=== PATIENT | male | born 1965 | race American Indian/Alaskan Native ===

== ENCOUNTER 2021-10-18 17:25 | Inpatient (IN) | payer OTHER ==
[2021-10-18] MEDS ORDERED: SODIUM CHLORIDE 0.9% 1000 ML IV SOLN IV ONE (18:38)
[2021-10-18] MEDS ORDERED: cefTRIAXone/NS 1 GM/50 ML 1 GM/50 ML BAG IV ONE (18:40)
--- NOTE | 2021-10-18 18:42 | Emergency Department Report ---
ED Altered Mental Status HPI - General Chief Complaint: Weakness Stated Complaint: FEVER/AMS PUI?: No Time Seen by Provider: 10/18/21 18:25 Source: patient Mode of arrival: Ambulatory Limitations: No Limitations - History of Present Illness Initial Comments: Patient is a 55-year-old male who presents emergency room for altered mental status and fever. Patient states that he feels cold. Patient is confused. Patient is alert and oriented x2. Patient not sure why he is here except that he is cold. Patient states his brother brought him here. MD Complaint: altered mental status -: Sudden Severity: severe Consistency of Symptoms: constant Associated Symptoms: cough, fever/chills - Related Data Previous Rx's Medication Instructions Recorded Last Taken Type predniSONE [Deltasone] 20 mg PO QDAY #4 tab 01/03/20 Unknown Rx Allergies Allergy/AdvReac Type Severity Reaction Status Date / Time No Known Allergies Allergy Verified 03/17/15 19:11 ED Review of Systems ROS: Stated complaint: FEVER/AMS Other details as noted in HPI Comment: Unobtainable due to pts medical conditions ED Past Medical Hx - Past Medical History Hx Hypertension: Yes Hx Congestive Heart Failure: No Hx Diabetes: No Hx Asthma: No Hx COPD: No Hx HIV: No - Social History Smoking Status: Never Smoker - Medications Home Medications: Home Medications Medication Instructions Recorded Confirmed Last Taken Type predniSONE [Deltasone] 20 mg PO QDAY #4 tab 01/03/20 Unknown Rx ED Physical Exam - General Limitations: No Limitations General appearance: alert, in no apparent distress - Head Head exam: Present: atraumatic, normocephalic - Eye Eye exam: Present: normal appearance - ENT ENT exam: Present: mucous membranes moist - Neck Neck exam: Present: normal inspection - Respiratory Respiratory exam: Present: normal lung sounds bilaterally. Absent: respiratory distress - Cardiovascular Cardiovascular Exam: Present: regular rate, normal rhythm. Absent: systolic murmur, diastolic murmur, rubs, gallop - GI/Abdominal GI/Abdominal exam: Present: soft, tenderness, normal bowel sounds - Rectal Rectal exam: Present: deferred - Extremities Exam Extremities exam: Present: normal inspection - Back Exam Back exam: Present: normal inspection - Neurological Exam Neurological exam: Present: alert, oriented X3 - Psychiatric Psychiatric exam: Present: normal affect, normal mood - Skin Skin exam: Present: warm, dry, intact, normal color. Absent: rash - Assessment Assessment Interval: Baseline - Level of Consciousness 1a. Level of Consciousness: alert/keenly responsive - LOC Questions 1b. LOC Questions: answers 1 question correctly - LOC Command 1c. LOC Commands: performs tasks correctly - Best Gaze 2. Best Gaze: normal - Visual 3. Visual: no visual loss - Facial Palsy 4. Facial Palsy: normal symmetrical movement - Motor Arm 5a. Motor Arm Left: no drift 5b. Motor Arm Right: no drift - Motor Leg 6a. Motor Leg Left: no drift 6b. Motor Leg Right: no drift - Limb Ataxia 7. Limb Ataxia: absent - Sensory 8. Sensory: normal - Best Language 9. Best Language: no aphasia - Dysarthria 10. Dysarthria: normal - Extinction and Inattention 11. Extinction/Inattention: no abnormality - Scoring Total Score: 1 Stroke Severity: Minor Stroke ED Course Vital Signs 10/18/21 10/18/21 10/18/21 17:35 19:05 19:52 Temperature 98.7 F 99.3 F Pulse Rate 101 H 96 H 94 H Respiratory 16 29 H 18 Rate Blood Pressure 144/112 148/105 158/109 [Left] O2 Sat by Pulse 94 96 96 Oximetry - Reevaluation(s) Reevaluation #1: Code sepsis initiated. Patient will be given fluids and early antibiotics. Patient also found to be hypoxic during initial evaluation. Patient placed on supplemental oxygen. 10/18/21 18:30 Reevaluation #2: Patient on oxygen. Patient ox saturation better with oxygen supplementation. Patient heart rate improved with fluids. 10/18/21 18:59 Reevaluation #3: Patient being monitored. Patient still confused. 10/18/21 19:59 Reevaluation #4: Patient's brother at bedside. Patient brother states he has been complaining of abdominal pain, diarrhea, nausea and vomiting for the past 3 days. Patient's brother states he then became confused and he brought him to the hospital today. 10/18/21 22:59 - Consultations Consultation #1: Hospitalist consulted for admission. Hospitalist to admit patient. 10/18/21 23:37 - Lab Data Result diagrams: 10/18/21 18:23 10/18/21 18:23 Lab Results 10/18/21 10/18/21 10/18/21 Range/Units 18:23 18:23 19:09 WBC 4.1 L (4.5-11.0) K/mm3 RBC 4.80 (3.65-5.03) M/mm3 Hgb 14.5 (11.8-15.2) gm/dl Hct 43.3 (35.5-45.6) % MCV 90 (84-94) fl MCH 30 (28-32) pg MCHC 33 (32-34) % RDW 16.6 H (13.2-15.2) % Plt Count 213 (140-440) K/mm3 Lymph % (Auto) 25.8 (13.4-35.0) % [place] % (Auto) 9.6 H (0.0-7.3) % Eos % (Auto) 0.6 (0.0-4.3) % Baso % (Auto) 0.2 (0.0-1.8) % Lymph # (Auto) 1.1 L (1.2-5.4) K/mm3 [place] # (Auto) 0.4 (0.0-0.8) K/mm3 Eos # (Auto) 0.0 (0.0-0.4) K/mm3 Baso # (Auto) 0.0 (0.0-0.1) K/mm3 Seg Neutrophils % 63.8 (40.0-70.0) % Seg Neutrophils # 2.6 (1.8-7.7) K/mm3 Sodium 138 (137-145) mmol/L Potassium 3.7 (3.6-5.0) mmol/L Chloride 102.5 (98-107) mmol/L Carbon Dioxide 24 (22-30) mmol/L Anion Gap 15 mmol/L BUN 11 (9-20) mg/dL Creatinine 1.0 (0.8-1.3) mg/dL Estimated GFR > 60 ml/min BUN/Creatinine Ratio 11 % Glucose 208 H (75-100) mg/dL Lactic Acid 1.20 (0.7-2.0) mmol/L Calcium 9.0 (8.4-10.2) mg/dL Total Bilirubin (0.1-1.2) mg/dL Direct Bilirubin (0-0.2) mg/dL Indirect Bilirubin mg/dL AST (5-40) units/L ALT (7-56) units/L Alkaline Phosphatase (35-129) units/L Ammonia (25-60) umol/L Total Creatine Kinase (55-170) units/L Troponin T (0.00-0.029) ng/mL Total Protein (6.3-8.2) g/dL Albumin (3.9-5) g/dL Albumin/Globulin Ratio % Urine Color (Yellow) Urine Turbidity (Clear) Urine pH (5.0-7.0) Ur Specific Winner (1.003-1.030) Urine Protein (Negative) mg/dL Urine Glucose (UA) (Negative) mg/dL Urine Ketones (Negative) mg/dL Urine Blood (Negative) Urine Nitrite (Negative) Urine Bilirubin (Negative) Urine Urobilinogen (<2.0) mg/dL Ur Leukocyte Esterase (Negative) Urine WBC (Auto) (0.0-6.0) /HPF Urine RBC (Auto) (0.0-6.0) /HPF U Epithel Cells (Auto) (0-13.0) /HPF Urine Mucus /HPF Plasma/Serum Alcohol (0-0.07) % 10/18/21 10/18/21 10/18/21 Range/Units 19:09 19:09 19:09 WBC (4.5-11.0) K/mm3 RBC (3.65-5.03) M/mm3 Hgb (11.8-15.2) gm/dl Hct (35.5-45.6) % MCV (84-94) fl MCH (28-32) pg MCHC (32-34) % RDW (13.2-15.2) % Plt Count (140-440) K/mm3 Lymph % (Auto) (13.4-35.0) % Sew[place] % (Auto) (0.0-7.3) % Eos % (Auto) (0.0-4.3) % Baso % (Auto) (0.0-1.8) % Lymph # (Auto) (1.2-5.4) K/mm3 [place] # (Auto) (0.0-0.8) K/mm3 Eos # (Auto) (0.0-0.4) K/mm3 Baso # (Auto) (0.0-0.1) K/mm3 Seg Neutrophils % (40.0-70.0) % Seg Neutrophils # (1.8-7.7) K/mm3 Sodium (137-145) mmol/L Potassium (3.6-5.0) mmol/L Chloride (98-107) mmol/L Carbon Dioxide (22-30) mmol/L Anion Gap mmol/L BUN (9-20) mg/dL Creatinine (0.8-1.3) mg/dL Estimated GFR ml/min BUN/Creatinine Ratio % Glucose (75-100) mg/dL Lactic Acid (0.7-2.0) mmol/L Calcium (8.4-10.2) mg/dL Total Bilirubin 0.70 (0.1-1.2) mg/dL Direct Bilirubin 0.3 H (0-0.2) mg/dL Indirect Bilirubin 0.4 mg/dL AST 134 H (5-40) units/L ALT 94 H (7-56) units/L Alkaline Phosphatase 57 (35-129) units/L Ammonia 25.0 (25-60) umol/L Total Creatine Kinase (55-170) units/L Troponin T < 0.010 (0.00-0.029) ng/mL Total Protein 8.2 (6.3-8.2) g/dL Albumin 4.0 (3.9-5) g/dL Albumin/Globulin Ratio 1.0 % Urine Color (Yellow) Urine Turbidity (Clear) Urine pH (5.0-7.0) Ur Specific Winner (1.003-1.030) Urine Protein (Negative) mg/dL Urine Glucose (UA) (Negative) mg/dL Urine Ketones (Negative) mg/dL Urine Blood (Negative) Urine Nitrite (Negative) Urine Bilirubin (Negative) Urine Urobilinogen (<2.0) mg/dL Ur Leukocyte Esterase (Negative) Urine WBC (Auto) (0.0-6.0) /HPF Urine RBC (Auto) (0.0-6.0) /HPF U Epithel Cells (Auto) (0-13.0) /HPF Urine Mucus /HPF Plasma/Serum Alcohol (0-0.07) % 10/18/21 10/18/21 10/18/21 Range/Units 19:09 19:09 20:16 WBC (4.5-11.0) K/mm3 RBC (3.65-5.03) M/mm3 Hgb (11.8-15.2) gm/dl Hct (35.5-45.6) % MCV (84-94) fl MCH (28-32) pg MCHC (32-34) % RDW (13.2-15.2) % Plt Count (140-440) K/mm3 Lymph % (Auto) (13.4-35.0) % [place] % (Auto) (0.0-7.3) % Eos % (Auto) (0.0-4.3) % Baso % (Auto) (0.0-1.8) % Lymph # (Auto) (1.2-5.4) K/mm3 [place] # (Auto) (0.0-0.8) K/mm3 Eos # (Auto) (0.0-0.4) K/mm3 Baso # (Auto) (0.0-0.1) K/mm3 Seg Neutrophils % (40.0-70.0) % Seg Neutrophils # (1.8-7.7) K/mm3 Sodium (137-145) mmol/L Potassium (3.6-5.0) mmol/L Chloride (98-107) mmol/L Carbon Dioxide (22-30) mmol/L Anion Gap mmol/L BUN (9-20) mg/dL Creatinine (0.8-1.3) mg/dL Estimated GFR ml/min BUN/Creatinine Ratio % Glucose (75-100) mg/dL Lactic Acid 1.50 (0.7-2.0) mmol/L Calcium (8.4-10.2) mg/dL Total Bilirubin (0.1-1.2) mg/dL Direct Bilirubin (0-0.2) mg/dL Indirect Bilirubin mg/dL AST (5-40) units/L ALT (7-56) units/L Alkaline Phosphatase (35-129) units/L Ammonia (25-60) umol/L Total Creatine Kinase 371 H (55-170) units/L Troponin T (0.00-0.029) ng/mL Total Protein (6.3-8.2) g/dL Albumin (3.9-5) g/dL Albumin/Globulin Ratio % Urine Color (Yellow) Urine Turbidity (Clear) Urine pH (5.0-7.0) Ur Specific Winner (1.003-1.030) Urine Protein (Negative) mg/dL Urine Glucose (UA) (Negative) mg/dL Urine Ketones (Negative) mg/dL Urine Blood (Negative) Urine Nitrite (Negative) Urine Bilirubin (Negative) Urine Urobilinogen (<2.0) mg/dL Ur Leukocyte Esterase (Negative) Urine WBC (Auto) (0.0-6.0) /HPF Urine RBC (Auto) (0.0-6.0) /HPF U Epithel Cells (Auto) (0-13.0) /HPF Urine Mucus /HPF Plasma/Serum Alcohol < 0.01 (0-0.07) % 10/18/21 Range/Units 22:08 WBC (4.5-11.0) K/mm3 RBC (3.65-5.03) M/mm3 Hgb (11.8-15.2) gm/dl Hct (35.5-45.6) % MCV (84-94) fl MCH (28-32) pg MCHC (32-34) % RDW (13.2-15.2) % Plt Count (140-440) K/mm3 Lymph % (Auto) (13.4-35.0) % [place] % (Auto) (0.0-7.3) % Eos % (Auto) (0.0-4.3) % Baso % (Auto) (0.0-1.8) % Lymph # (Auto) (1.2-5.4) K/mm3 [place] # (Auto) (0.0-0.8) K/mm3 Eos # (Auto) (0.0-0.4) K/mm3 Baso # (Auto) (0.0-0.1) K/mm3 Seg Neutrophils % (40.0-70.0) % Seg Neutrophils # (1.8-7.7) K/mm3 Sodium (137-145) mmol/L Potassium (3.6-5.0) mmol/L Chloride (98-107) mmol/L Carbon Dioxide (22-30) mmol/L Anion Gap mmol/L BUN (9-20) mg/dL Creatinine (0.8-1.3) mg/dL Estimated GFR ml/min BUN/Creatinine Ratio % Glucose (75-100) mg/dL Lactic Acid (0.7-2.0) mmol/L Calcium (8.4-10.2) mg/dL Total Bilirubin (0.1-1.2) mg/dL Direct Bilirubin (0-0.2) mg/dL Indirect Bilirubin mg/dL AST (5-40) units/L ALT (7-56) units/L Alkaline Phosphatase (35-129) units/L Ammonia (25-60) umol/L Total Creatine Kinase (55-170) units/L Troponin T (0.00-0.029) ng/mL Total Protein (6.3-8.2) g/dL Albumin (3.9-5) g/dL Albumin/Globulin Ratio % Urine Color Yellow (Yellow) Urine Turbidity Clear (Clear) Urine pH 6.0 (5.0-7.0) Ur Specific Winner 1.019 (1.003-1.030) Urine Protein <15 mg/dl (Negative) mg/dL Urine Glucose (UA) 150 (Negative) mg/dL Urine Ketones Neg (Negative) mg/dL Urine Blood Neg (Negative) Urine Nitrite Neg (Negative) Urine Bilirubin Neg (Negative) Urine Urobilinogen 4.0 (<2.0) mg/dL Ur Leukocyte Esterase Neg (Negative) Urine WBC (Auto) 2.0 (0.0-6.0) /HPF Urine RBC (Auto) 1.0 (0.0-6.0) /HPF U Epithel Cells (Auto) < 1.0 (0-13.0) /HPF Urine Mucus Few /HPF Plasma/Serum Alcohol (0-0.07) % - EKG Data -: EKG Interpreted by Vt EKG shows normal: sinus rhythm, axis, intervals, QRS complexes, ST-T waves Rate: tachycardia - Radiology Data Radiology results: report reviewed, image reviewed CHEST 1 VIEW INDICATION / CLINICAL INFORMATION: fever. FINDINGS: SUPPORT DEVICES: None. HEART / MEDIASTINUM: No significant abnormality. LUNGS / PLEURA: No significant pulmonary or pleural abnormality. No pneumothorax. ADDITIONAL FINDINGS: No significant additional findings. IMPRESSION: 1. No acute findings. NONENHANCED CT SCAN OF THE HEAD: INDICATION / CLINICAL INFORMATION: 55 years Male; Altered Mental Status. TECHNIQUE: Routine CT head without contrast. All CT scans at this location are performed using CT dose reduction for ALARA by means of automated exposure control. COMPARISON: CT scan of the head from 12/25/2019 FINDINGS: BRAIN / INTRACRANIAL CONTENTS: No acute hemorrhage, mass effect, midline shift, hydrocephalus, or acute, large territorial infarct. No chronic infarct or focal atrophy. Normal brain volume and ventricular/sulcal size for age. No significant white matter abnormality. CRANIOCERVICAL JUNCTION: No significant abnormality. ORBITS: No significant abnormality of visualized orbits. SINUSES / MASTOIDS: Retention cyst in the left sphenoid sinus and right ma xillary sinus ADDITIONAL FINDINGS: None. IMPRESSION: No acute focal parenchymal lesion CTA CHEST WITH CONTRAST INDICATION / CLINICAL INFORMATION: fever. ams. tachyacrdia, hypoxia. TECHNIQUE: Axial CT images were obtained through the chest after injection of 100 cc Omnipaque 350 IV contrast. 3 plane MIP and/or 3D reconstructions were produced. All CT scans at this location are performed using CT dose reduction for SymwaveRA by means of automated exposure control. COMPARISON: None available. FINDINGS: VASCULAR FINDINGS: PULMONARY ARTERY: Suboptimal opacification of segmental and subsegmental pulmonary artery branches. Additional motion artifact present. No obvious filling defects compatible with pulmonary artery embolus.. THORACIC AORTA: No significant abnormality. CORONARY ARTERY CALCIFICATION: Absent -- None. NONVASCULAR FINDINGS: LOWER NECK: Soft tissues and musculature of the lower neck demonstrate no significant abnormality. The thyroid demonstrates no significant abnormality. HEART: No significant abnormality. MEDIASTINUM / KIMBERLY: No significant abnormality. ESOPHAGUS: No significant abnormality. LYMPH NODES: No adenopathy within the axilla, mediastinum, or kimberly. LUNGS: Lungs are blurred by motion. No focal consolidation. No suspicious nodules. PLEURA: No pleural effusion. No pneumothorax. THORACIC SOFT TISSUES: No significant abnormality of the chest wall or upper thoracic musculature. BONES: No significant skeletal abnormalities. ADDITIONAL CHEST FINDINGS: None. UPPER ABDOMEN: Low-attenuation of the liver compatible with hepatic steatosis. IMPRESSION: 1. No CT evidence for pulmonary embolism. 2. No acute findings. CT ABDOMEN AND PELVIS WITH CONTRAST INDICATION / CLINICAL INFORMATION: fever. ams.abd pain. TECHNIQUE: Axial CT images were obtained through the abdomen and pelvis after unspecified IV contrast. All CT scans at this location are performed using CT dose reduction for ALARA by means of automated exposure control. COMPARISON: ; CTA chest same date. FINDINGS: LOWER CHEST: No acute findings within the lower chest. Please see comparison study for additional. LIVER: Diffuse low attenuation with rounded focus of enhancement in lateral segment left hepatic lobe, differential considerations to include class filled hemangioma, focal nodular hyperplasia, and focal sparing. Additional small foci adjacent gallbladder fossa. GALLBLADDER: No significant abnormality. BILE DUCTS: No significant abnormality. SPLEEN: No significant abnormality. PANCREAS: No significant abnormality. ADRENALS: No significant abnormality. KIDNEYS/URETERS: No stones or hydronephrosis. No solid renal lesion. STOMACH / DUODENUM / SMALL BOWEL: Circumferential wall thickening of the lower esophagus. The stomach, duodenum, small bowel, and mesentery otherwise demonstrate no significant abnormalities. COLON: No significant abnormality. APPENDIX: No significant abnormality. PERITONEUM: No free air or free fluid are present within the abdomen or pelvis. LYMPH NODES: No significant adenopathy. AORTA / ARTERIES: No significant abnormality. IVC / VEINS: No significant abnormality. URINARY BLADDER: No significant abnormality. REPRODUCTIVE ORGANS: No significant abnormality. ADDITIONAL ABDOMINAL/PELVIC FINDINGS: None. SKELETAL SYSTEM: No significant abnormality. IMPRESSION: 1. No acute findings within the abdomen or pelvis. 2. Rounded focus of enhancement left hepatic lobe with additional small foci a djacent to gallbladder fossa, differential considerations as detailed. - Medical Decision Making Patient is a 55-year-old male who presents emergency room with altered mental status and fever. Initial evaluation was done and patient able to give little insight to the history of presenting illness and other symptoms besides fever and being confused. Patient brother later in the ER course presented at bedside and reported that the patient had abdominal pain, diarrhea, nausea, vomiting for 1 week. The brother brought him to the ER because he was confused and febrile. Initial evaluation, patient found to be hypoxic and the patient was placed on supplemental oxygen. Patient remained on supplemental oxygen entire time in the ER. Patient given fluids and the patient's heart rate improved. Due to patient's altered mental status, a head CT was done. Patient's head CT was negative for acute findings. For the fever, the patient had a chest x-ray which was negative for acute findings. Patient had an abdominal CT for the abdominal pain. Patient done with C was negative for acute findings. Patient had a chest CT due to the tachycardia and hypoxia. Patient's chest CT was negat shay for acute findings. CTA showed no PE. Patient admitted to the hospital service for further evaluation treatment. Critical care time documented due to the multiple reassessments, prolonged time at the bedside, interpretation of diagnostics and labs. - Differential Diagnosis Abdominal pain, dehydration, AMS, hypoxia, nausea and vomiting Critical Care Time: Yes Critical care time in (mins) excluding proc time.: 35 Critical care attestation.: If time is entered above; I have spent that time in minutes in the direct care of this critically ill patient, excluding procedure time. Critical Care Time: 35 minutes ED Disposition Clinical Impression: Hypoxia, Nausea vomiting and diarrhea Altered mental status Qualifiers: Altered mental status type: unspecified Qualified Code(s): R41.82 - Altered mental status, unspecified Fever Qualifiers: Fever type: unspecified Qualified Code(s): R50.9 - Fever, unspecified Abdominal pain Qualifiers: Abdominal location: unspecified location Qualified Code(s): R10.9 - Unspecified abdominal pain Respiratory failure Qualifiers: Chronicity: acute Respiratory failure complication: hypoxia Qualified Code(s): J96.01 - Acute respiratory failure with hypoxia Disposition: 09 ADMITTED INPATIENT Is pt being admited?: Yes Does the pt Need Aspirin: No Condition: Critical Time of Disposition: 23:44
[2021-10-18 18:53] LABS: Basophils % (Auto) 0.2 % (0.0-1.8); Eosinophils % (Auto) 0.6 % (0.0-4.3); Hematocrit 43.3 % (35.5-45.6); Hemoglobin 14.5 gm/dl (11.8-15.2); Lymphocytes # (Auto) 1.1 K/mm3 (1.2-5.4); Lymphocytes % (Auto) 25.8 % (13.4-35.0); Mean Corpuscular HGB Conc 33 % (32-34); Mean Corpuscular Volume 90 fl (84-94); Monocytes # (Auto) 0.4 K/mm3 (0.0-0.8); Monocytes % (Auto) 9.6 % (0.0-7.3); Platelet Count 213 K/mm3 (140-440); Red Cell Distribution Width 16.6 % (13.2-15.2)
[2021-10-18 19:05] LABS: BUN/Creatinine Ratio 11; Blood Urea Nitrogen 11 mg/dL (9-20); Hemolysis Index 5
--- NOTE | 2021-10-18 19:24 | XRay Report ---
CHEST 1 VIEW INDICATION / CLINICAL INFORMATION: fever. FINDINGS: SUPPORT DEVICES: None. HEART / MEDIASTINUM: No significant abnormality. LUNGS / PLEURA: No significant pulmonary or pleural abnormality. No pneumothorax. ADDITIONAL FINDINGS: No significant additional findings. IMPRESSION: 1. No acute findings. Signer Name: Quique Lawler MD Signed: 10/18/2021 7:19 PM Workstation Name: [id number]
[2021-10-18 19:47] LABS: Bilirubin,Direct 0.3 mg/dL (0-0.2)
--- NOTE | 2021-10-18 20:15 | Cat Scan Report ---
NONENHANCED CT SCAN OF THE HEAD: INDICATION / CLINICAL INFORMATION: 55 years Male; Altered Mental Status. TECHNIQUE: Routine CT head without contrast. All CT scans at this location are performed using CT dos e reduction for ALARA by means of automated exposure control. COMPARISON: CT scan of the head from 12/25/2019 FINDINGS: BRAIN / INTRACRANIAL CONTENTS: No acute hemorrhage, mass effect, midline shift, hydrocephalus, or acu te, large territorial infarct. No chronic infarct or focal atrophy. Normal brain volume and ventricul ar/sulcal size for age. No significant white matter abnormality. CRANIOCERVICAL JUNCTION: No significant abnormality. ORBITS: No significant abnormality of visualized orbits. SINUSES / MASTOIDS: Retention cyst in the left sphenoid sinus and right maxillary sinus ADDITIONAL FINDINGS: None. IMPRESSION: No acute focal parenchymal lesion Signer Name: Katherine Mora MD Signed: 10/18/2021 8:11 PM Workstation Name: [id number]
--- NOTE | 2021-10-18 22:19 | History and Physical Report ---
History of Present Illness Date of examination: 10/18/21 Date of admission: 10/18/2021 Chief complaint: Altered mental status History of present illness: 55-year-old male presenting to the emergency room today complaining of Gardner mental status and fever. Patient was said to be brought to the emergency room by his brother. Patient unable to provide adequate history and most of the information was gotten from the ER staff. Patient however states he just feels cold. He denies any chest pain, no nausea vomiting and no abdominal pain. No hematuria or dysuria. Work-up in the emergency room today, chest x-ray shows no acute findings. CT of the head shows no acute findings. CT of the abdomen and pelvis shows no acute findings Patient being admitted for further evaluation of his mental status. Past History Past Medical History: hypertension Past Surgical History: No surgical history Social history: no significant social history Family history: no significant family history Medications and Allergies Allergies Allergy/AdvReac Type Severity Reaction Status Date / Time No Known Allergies Allergy Verified 03/17/15 19:11 Home Medications Medication Instructions Recorded Confirmed Last Taken Type predniSONE [Deltasone] 20 mg PO QDAY #4 tab 01/03/20 10/19/21 Unknown Rx Review of Systems ROS unobtainable: due to mental status Exam - Constitutional Vitals: Temp Pulse Resp BP Pulse Ox 99.3 F 94 H 18 158/109 96 10/18/21 19:05 10/18/21 19:52 10/18/21 19:52 10/18/21 19:52 10/18/21 19:52 General appearance: Present: no acute distress, well-nourished - EENT Eyes: Present: PERRL, EOM intact. Absent: scleral icterus ENT: hearing intact, clear oral mucosa, dentition normal - Neck Neck: Present: supple, normal ROM - Respiratory Respiratory effort: normal Respiratory: bilateral: CTA - Cardiovascular Rhythm: regular Heart Sounds: Present: S1 & S2. Absent: gallop, systolic murmur, diastolic murmur, rub, click - Extremities Extremities: no ischemia, pulses intact, pulses symmetrical, No edema, normal temperature, normal color, Full ROM Peripheral Pulses: within normal limits - Abdominal General gastrointestinal: Present: soft, non-tender, non-distended, normal bowel sounds. Absent: mass - Integumentary Integumentary: Present: clear, warm, dry, normal turgor. Absent: rash - Musculoskeletal Musculoskeletal: strength equal bilaterally - Psychiatric Psychiatric: agitated - Neurologic Neurologic: CNII-XII intact, no focal deficits, moves all extremities HEART Score - HEART Score Troponin: Troponin T < 0.010 ng/mL (0.00-0.029) 10/18/21 19:09 Results - Labs CBC & Chem 7: 10/19/21 04:36 10/19/21 04:36 Labs: Abnormal lab results 10/18/21 10/18/21 10/18/21 Range/Units 18:23 18:23 19:09 WBC 4.1 L (4.5-11.0) K/mm3 RDW 16.6 H (13.2-15.2) % [place] % (Auto) 9.6 H (0.0-7.3) % Lymph # (Auto) 1.1 L (1.2-5.4) K/mm3 Glucose 208 H (75-100) mg/dL Direct Bilirubin 0.3 H (0-0.2) mg/dL AST 134 H (5-40) units/L ALT 94 H (7-56) units/L Total Creatine Kinase (55-170) units/L 10/18/21 Range/Units 19:09 WBC (4.5-11.0) K/mm3 RDW (13.2-15.2) % [place] % (Auto) (0.0-7.3) % Lymph # (Auto) (1.2-5.4) K/mm3 Glucose (75-100) mg/dL Direct Bilirubin (0-0.2) mg/dL AST (5-40) units/L ALT (7-56) units/L Total Creatine Kinase 371 H (55-170) units/L Assessment and Plan - Patient Problems (1) Altered mental status Current Visit: Yes Status: Acute Qualifiers: Altered mental status type: unspecified Qualified Code(s): R41.82 - Altered mental status, unspecified Plan to address problem: Etiology is unclear. Work-up so far has been negative. (2) Fever Current Visit: Yes Status: Acute Qualifiers: Fever type: unspecified Qualified Code(s): R50.9 - Fever, unspecified Plan to address problem: Will await culture results. (3) Hypoxia Current Visit: Yes Status: Acute Plan to address problem: We will keep O2 saturation greater equal to 92%. (4) HTN (hypertension) Current Visit: No Status: Acute Plan to address problem: Will resume routine home medication and monitor vital signs closely. (5) Elevated liver enzymes Current Visit: Yes Status: Acute Plan to address problem: Etiology is unclear Will check hepatitis profile. (6) DVT prophylaxis Current Visit: No Status: Acute Plan to address problem: Patient placed on subcutaneous heparin. (7) Full code status Current Visit: No Status: Acute Plan to address problem: Patient is full code.
[2021-10-18 22:42] LABS: Bilirubin,Urine NEG (Negative); Blood,Urine NEG (Negative); Color,Urine Yellow (Yellow); Mucus,Urine FEW /HPF; Protein,Urine <15 mg/dL mg/dL (Negative)
--- NOTE | 2021-10-18 23:29 | Cat Scan Report ---
CTA CHEST WITH CONTRAST INDICATION / CLINICAL INFORMATION: fever. ams. tachyacrdia, hypoxia. TECHNIQUE: Axial CT images were obtained through the chest after injection of 100 cc Omnipaque 350 IV contrast. 3 plane MIP and/or 3D reconstructions were produced. All CT scans at this location are per formed using CT dose reduction for ALARA by means of automated exposure control. COMPARISON: None available. FINDINGS: VASCULAR FINDINGS: PULMONARY ARTERY: Suboptimal opacification of segmental and subsegmental pulmonary artery branches. A dditional motion artifact present. No obvious filling defects compatible with pulmonary artery embolu s.. THORACIC AORTA: No significant abnormality. CORONARY ARTERY CALCIFICATION: Absent -- None. NONVASCULAR FINDINGS: LOWER NECK: Soft tissues and musculature of the lower neck demonstrate no significant abnormality. Th e thyroid demonstrates no significant abnormality. HEART: No significant abnormality. MEDIASTINUM / KIMBERLY: No significant abnormality. ESOPHAGUS: No significant abnormality. LYMPH NODES: No adenopathy within the axilla, mediastinum, or kimberly. LUNGS: Lungs are blurred by motion. No focal consolidation. No suspicious nodules. PLEURA: No pleural effusion. No pneumothorax. THORACIC SOFT TISSUES: No significant abnormality of the chest wall or upper thoracic musculature. BONES: No significant skeletal abnormalities. ADDITIONAL CHEST FINDINGS: None. UPPER ABDOMEN: Low-attenuation of the liver compatible with hepatic steatosis. IMPRESSION: 1. No CT evidence for pulmonary embolism. 2. No acute findings. Signer Name: Yair Bartlett II, MD Signed: 10/18/2021 11:25 PM Workstation Name: [id number]
--- NOTE | 2021-10-18 23:36 | Cat Scan Report ---
CT ABDOMEN AND PELVIS WITH CONTRAST INDICATION / CLINICAL INFORMATION: fever. ams.abd pain. TECHNIQUE: Axial CT images were obtained through the abdomen and pelvis after unspecified IV contrast . All CT scans at this location are performed using CT dose reduction for ALARA by means of automate d exposure control. COMPARISON: ; CTA chest same date. FINDINGS: LOWER CHEST: No acute findings within the lower chest. Please see comparison study for additional. LIVER: Diffuse low attenuation with rounded focus of enhancement in lateral segment left hepatic lobe , differential considerations to include class filled hemangioma, focal nodular hyperplasia, and foca l sparing. Additional small foci adjacent gallbladder fossa. GALLBLADDER: No significant abnormality. BILE DUCTS: No significant abnormality. SPLEEN: No significant abnormality. PANCREAS: No significant abnormality. ADRENALS: No significant abnormality. KIDNEYS/URETERS: No stones or hydronephrosis. No solid renal lesion. STOMACH / DUODENUM / SMALL BOWEL: Circumferential wall thickening of the lower esophagus. The stomach , duodenum, small bowel, and mesentery otherwise demonstrate no significant abnormalities. COLON: No significant abnormality. APPENDIX: No significant abnormality. PERITONEUM: No free air or free fluid are present within the abdomen or pelvis. LYMPH NODES: No significant adenopathy. AORTA / ARTERIES: No significant abnormality. IVC / VEINS: No significant abnormality. URINARY BLADDER: No significant abnormality. REPRODUCTIVE ORGANS: No significant abnormality. ADDITIONAL ABDOMINAL/PELVIC FINDINGS: None. SKELETAL SYSTEM: No significant abnormality. IMPRESSION: 1. No acute findings within the abdomen or pelvis. 2. Rounded focus of enhancement left hepatic lobe with additional small foci adjacent to gallbladder fossa, differential considerations as detailed. Signer Name: Yair Bartlett II, MD Signed: 10/18/2021 11:32 PM Workstation Name: [id number]
[2021-10-18] MEDS ORDERED: MAGNESIUM HYDROXIDE (MOM) ORAL LIQD UDC PO PRN (23:41)
[2021-10-18] MEDS ORDERED: ONDANSETRON 4 MG/2 ML INJ IV PRN (23:41)
[2021-10-18] MEDS ORDERED: MORPHINE 4 MG/1 ML INJ IV PRN (23:41)
[2021-10-18] MEDS ORDERED: MORPHINE 2 MG/1 ML INJ IV PRN (23:41)
[2021-10-18] MEDS ORDERED: SODIUM CHLORIDE 0.9% 1000 ML 1,000 ML IV SCH (23:45)
[2021-10-19 01:17] LABS: Hepatitis B Surface Antigen Non-Reactive (Negative); Hepatitis C Virus Antibody Non-Reactive (NonReactive)
[2021-10-19 05:13] LABS: Eosinophils % (Auto) 0.5 % (0.0-4.3); Hematocrit 42.5 % (35.5-45.6); Hemoglobin 14.1 gm/dl (11.8-15.2); Lymphocytes # (Auto) 1.4 K/mm3 (1.2-5.4); Lymphocytes % (Auto) 27.8 % (13.4-35.0); Mean Corpuscular HGB Conc 33 % (32-34); Mean Corpuscular Volume 90 fl (84-94); Monocytes # (Auto) 0.4 K/mm3 (0.0-0.8); Monocytes % (Auto) 8.6 % (0.0-7.3); Platelet Count 220 K/mm3 (140-440); Red Blood Count 4.72 M/mm3 (3.65-5.03)
[2021-10-19 05:28] LABS: BUN/Creatinine Ratio 9; Blood Urea Nitrogen 7 mg/dL (9-20); Hemolysis Index 6
--- NOTE | 2021-10-19 09:09 | Progress Note ---
Assessment and Plan Assessment and plan: 55-year-old male who presents emergency room with altered mental status and fever. Patient has no significant past medical history. Patient visited somebody in [place] during the weekend and returned after 2 to 3 days. He was experiencing nausea vomiting and diarrhea since Thursday but did not seek medical attention. He was noted to have a fever, drowsiness and confusion and brought to ED. Patient unable to provide any history since confused. Patient brother later in the ER course presented at bedside and reported that the patient had abdominal pain, diarrhea, nausea, vomiting for 1 week. The brother brought him to the ER because he was confused and febrile. Initial evaluation, patient found to be hypoxic and the patient was placed on supplemental oxygen. Patient remained on supplemental oxygen entire time in the ER. Patient given fluids and the patient's heart rate improved. Due to patient's altered mental status, a head CT was done. Patient's head CT was negative for acute findings. For the fever, the patient had a chest x-ray which was negative for acute findings. Patient had an abdominal CT for the abdominal pain. Patient done with C was negative for acute findings. Patient had a chest CT due to the tachycardia and hypoxia. Patient's chest CT was negative for acute findings. CTA showed no PE. (1) Altered mental status with fever Current Visit: Yes Status: Acute Qualifiers: Altered mental status type: unspecified Qualified Code(s): R41.82 - Altered mental status, unspecified Plan to address problem: Etiology is unclear but concerning for central system infection like meningitis/encephalitis. No seizure activity reported. Preceded by nausea/vomiting and diarrhea after returning from a brief trip to [place]. Very somnolent, confused with incoherent speech. Neurology consulted and attempted LP but unsuccessful. Interventional radiology not available during the weekend for LP. Receiving acyclovir, Rocephin and ampicillin for broad-spectrum coverage for meningitis/encephalitis. ASHKAN Jones consulted on phone and discussed the case. Neurology also started Keppra for seizure prophylaxis. Continue neurochecks, aspiration precautions, seizure precautions. We will keep n.p.o. and continue IV fluids for hydration. Urine drug screen ordered but not yet performed as patient was unable to make urine. Blood alcohol level negative. CT head, CTA chest and CT abdomen/pelvis unremarkable. Blood cultures pending. According to the son and want, patient does not use alcohol, tobacco or illicit drugs. No significant past medical history provided. (2) Fever with nausea, vomiting, diarrhea and elevated LFTs but no leukocytosis Current Visit: Yes Status: Acute Qualifiers: Fever type: unspecified Qualified Code(s): R50.9 - Fever, unspecified Plan to address problem: CT chest and CT abdomen negative for pneumonia or inflammatory changes. Suggestive of viral syndrome. COVID-19 test negative. Will await culture results. (3) Hypoxia noted in ED Current Visit: Yes Status: Acute Plan to address problem: Currently patient has no respiratory distress, lungs clear. We will keep O2 saturation greater equal to 92%. (4) HTN (hypertension) Current Visit: No Status: Acute Plan to address problem: Currently stable (5) Elevated liver enzymes Current Visit: Yes Status: Acute Plan to address problem: Etiology is unclear, likely part of acute viral syndrome Will check hepatitis profile. (6) DVT prophylaxis Current Visit: No Status: Acute Plan to address problem: Change heparin to SCDs in anticipation of LP (7) Full code status Current Visit: No Status: Acute Plan to address problem: Patient is full code. Discussed with patient's son, aunt, nursing staff, neurology and ID service Critical care time spent 55 minutes History Interval history: Patient's aunt and son are present at bedside who provided additional history. Patient remains very somnolent, confused and febrile. Temp 101 degrees. Hemod ynamically stable. Patient is arousable but goes back to sleep quickly. Verbal but confused. Unable to provide history. Neurology attempted LP but unsuccessful. Placed on Rocephin and acyclovir, added ampicillin for meningitis as per ID recommendations. Hospitalist Physical - Constitutional Vitals: Temp Pulse Resp BP Pulse Ox 99.3 F 88 24 138/87 92 10/18/21 19:05 10/19/21 01:01 10/19/21 00:00 10/19/21 01:30 10/19/21 01:30 General appearance: Present: no acute distress, well-nourished, other (Very somnolent and confused) - EENT Eyes: Present: PERRL (No gaze preference) ENT: clear oral mucosa - Neck Neck: Present: supple - Respiratory Respiratory effort: normal Respiratory: bilateral: CTA - Cardiovascular Rhythm: regular - Extremities Extremities: No edema - Abdominal General gastrointestinal: soft, non-tender, non-distended, normal bowel sounds - Integumentary Integumentary: Absent: rash - Neurologic Neurologic: other (Very somnolent, arousable but goes back to sleep quickly, minimally verbal but incoherent. Pupils normal/equal. Face symmetrical. MOVES all extremities to noxious stimuli. No focal extremity weakness on gross exam. No involuntary movements.) HEART Score - HEART Score Troponin: Troponin T < 0.010 ng/mL (0.00-0.029) 10/18/21 19:09 Results - Labs CBC & Chem 7: 10/19/21 04:36 10/19/21 04:36 Labs: Laboratory Last Values WBC 5.1 K/mm3 (4.5-11.0) 10/19/21 04:36 RBC 4.72 M/mm3 (3.65-5.03) 10/19/21 04:36 Hgb 14.1 gm/dl (11.8-15.2) 10/19/21 04:36 Hct 42.5 % (35.5-45.6) 10/19/21 04:36 MCV 90 fl (84-94) 10/19/21 04:36 MCH 30 pg (28-32) 10/19/21 04:36 MCHC 33 % (32-34) 10/19/21 04:36 RDW 16.0 % (13.2-15.2) H 10/19/21 04:36 Plt Count 220 K/mm3 (140-440) 10/19/21 04:36 Lymph % (Auto) 27.8 % (13.4-35.0) 10/19/21 04:36 [place] % (Auto) 8.6 % (0.0-7.3) H 10/19/21 04:36 Eos % (Auto) 0.5 % (0.0-4.3) 10/19/21 04:36 Baso % (Auto) 1.0 % (0.0-1.8) 10/19/21 04:36 Lymph # (Auto) 1.4 K/mm3 (1.2-5.4) 10/19/21 04:36 [place] # (Auto) 0.4 K/mm3 (0.0-0.8) 10/19/21 04:36 Eos # (Auto) 0.0 K/mm3 (0.0-0.4) 10/19/21 04:36 Baso # (Auto) 0.0 K/mm3 (0.0-0.1) 10/19/21 04:36 Seg Neutrophils % 62.1 % (40.0-70.0) 10/19/21 04:36 Seg Neutrophils # 3.2 K/mm3 (1.8-7.7) 10/19/21 04:36 Sodium 137 mmol/L (137-145) 10/19/21 04:36 Potassium 3.9 mmol/L (3.6-5.0) 10/19/21 04:36 Chloride 103.2 mmol/L (98-107) 10/19/21 04:36 Carbon Dioxide 23 mmol/L (22-30) 10/19/21 04:36 Anion Gap 15 mmol/L 10/19/21 04:36 BUN 7 mg/dL (9-20) L 10/19/21 04:36 Creatinine 0.8 mg/dL (0.8-1.3) 10/19/21 04:36 Estimated GFR > 60 ml/min 10/19/21 04:36 BUN/Creatinine Ratio 9 % 10/19/21 04:36 Glucose 156 mg/dL (75-100) H 10/19/21 04:36 Lactic Acid 1.50 mmol/L (0.7-2.0) 10/18/21 20:16 Calcium 9.0 mg/dL (8.4-10.2) 10/19/21 04:36 Total Bilirubin 0.70 mg/dL (0.1-1.2) 10/18/21 19:09 Direct Bilirubin 0.3 mg/dL (0-0.2) H 10/18/21 19:09 Indirect Bilirubin 0.4 mg/dL 10/18/21 19:09 AST 134 units/L (5-40) H 10/18/21 19:09 ALT 94 units/L (7-56) H 10/18/21 19:09 Alkaline Phosphatase 57 units/L (35-129) 10/18/21 19:09 Ammonia 25.0 umol/L (25-60) 10/18/21 19:09 Total Creatine Kinase 371 units/L (55-170) H 10/18/21 19:09 Troponin T < 0.010 ng/mL (0.00-0.029) 10/18/21 19:09 Total Protein 8.2 g/dL (6.3-8.2) 10/18/21 19:09 Albumin 4.0 g/dL (3.9-5) 10/18/21 19:09 Albumin/Globulin Ratio 1.0 % 10/18/21 19:09 Urine Color Yellow (Yellow) 10/18/21 22:08 Urine Turbidity Clear (Clear) 10/18/21 22:08 Urine pH 6.0 (5.0-7.0) 10/18/21 22:08 Ur Specific [place] 1.019 (1.003-1.030) 10/18/21 22:08 Urine Protein <15 mg/dl mg/dL (Negative) 10/18/21 22:08 Urine Glucose (UA) 150 mg/dL (Negative) 10/18/21 22:08 Urine Ketones Neg mg/dL (Negative) 10/18/21 22:08 Urine Blood Neg (Negative) 10/18/21 22:08 Urine Nitrite Neg (Negative) 10/18/21 22:08 Urine Bilirubin Neg (Negative) 10/18/21 22:08 Urine Urobilinogen 4.0 mg/dL (<2.0) 10/18/21 22:08 Ur Leukocyte Esterase Neg (Negative) 10/18/21 22:08 Urine WBC (Auto) 2.0 /HPF (0.0-6.0) 10/18/21 22:08 Urine RBC (Auto) 1.0 /HPF (0.0-6.0) 10/18/21 22:08 U Epithel Cells (Auto) < 1.0 /HPF (0-13.0) 10/18/21 22:08 Urine Mucus Few /HPF 10/18/21 22:08 Plasma/Serum Alcohol < 0.01 % (0-0.07) 10/18/21 19:09 Hep Bs Antigen Non-reactive (Negative) 10/19/21 00:14 Hep B Core IgM Ab Non-reactive (NonReactive) 10/19/21 00:14 Hepatitis C Antibody Non-reactive (NonReactive) 10/19/21 00:14 Microbiology: Microbiology 10/18/21 19:00 Peripheral/Venous Blood Culture - Preliminary Culture in Progress 10/18/21 19:00 Peripheral/Venous Blood Culture - Preliminary Culture in Progress Active Medications - Current Medications Current Medications: Generic Name Dose Route Start Last Admin Trade Name Freq PRN Reason Stop Dose Admin Acetaminophen 650 mg 10/18/21 23:41 Acetaminophen 325 Mg Tab PO Q4H PRN Pain MILD(1-3)/Fever >100.5/JENKINS Sodium Chloride 1,000 mls @ 75 mls/hr 10/18/21 23:45 Nacl 0.9% 1000 Ml IV DIRECT BOB Magnesium Hydroxide 30 ml 10/18/21 23:41 Magnesium Hydroxide (Mom) Oral Liqd Udc PO Q4H PRN Constipation Ondansetron HCl 4 mg 10/18/21 23:41 Ondansetron 4 Mg/2 Ml Inj IV Q8H PRN Nausea And Vomiting Sodium Chloride 10 ml 10/19/21 10:00 Sodium Chloride 0.9% 10 Ml Flush Syringe IV BID BOB Sodium Chloride 10 ml 10/18/21 23:41 Sodium Chloride 0.9% 10 Ml Flush Syringe IV PRN PRN LINE FLUSH
--- NOTE | 2021-10-19 10:57 | Consultation ---
History of Present Illness Consult date: 10/19/21 Reason for Consult: Alteterd mentation and temp.98 F History of present illness: Altered mental status History of present illness: 55-year-old male presenting to the emergency room today complaining of cahnge mental status and fever. Patient was said to be brought to the emergency room by his brother. Patient unable to provide adequate history and most of the information was gotten from the ER staff. Patient however states he just feels cold. He denies any chest pain, no nausea vomiting and no abdominal pain. No hematuria or dysuria. Work-up in the emergency room today, chest x-ray shows no acute findings. CT of the head shows no acute findings. CT of the abdomen and pelvis shows no acute findings Patient being admitted for urgent evaluation of his further mental status. today he is alert not follow command seems to be confused , no focal weakness is noted Past History Past Medical History: hypertension Past Surgical History: No surgical history Social history: no significant social history Family history: no significant family history Medications and Allergies Allergies Allergy/AdvReac Type Severity Reaction Status Date / Time No Known Allergies Allergy Verified 03/17/15 19:11 Home Medications Medication Instructions Recorded Confirmed Last Taken Type predniSONE [Deltasone] 20 mg PO QDAY #4 tab 01/03/20 10/19/21 Unknown Rx Review of Systems ROS unobtainable: due to mental status Past History Past Medical History: hypertension Past Surgical History: No surgical history Social history: no significant social history Family history: no significant family history Medications and Allergies Allergies Allergy/AdvReac Type Severity Reaction Status Date / Time No Known Allergies Allergy Verified 03/17/15 19:11 Home Medications Medication Instructions Recorded Confirmed Last Taken Type predniSONE [Deltasone] 20 mg PO QDAY #4 tab 01/03/20 10/19/21 Unknown Rx Active Meds: Active Medications Acetaminophen (Acetaminophen 325 Mg Tab) 650 mg PO Q4H PRN PRN Reason: Pain MILD(1-3)/Fever >100.5/JENKINS Sodium Chloride (Nacl 0.9% 1000 Ml) 1,000 mls @ 75 mls/hr IV DIRECT BOB Magnesium Hydroxide (Magnesium Hydroxide (Mom) Oral Liqd Udc) 30 ml PO Q4H PRN PRN Reason: Constipation Ondansetron HCl (Ondansetron 4 Mg/2 Ml Inj) 4 mg IV Q8H PRN PRN Reason: Nausea And Vomiting Sodium Chloride (Sodium Chloride 0.9% 10 Ml Flush Syringe) 10 ml IV BID BOB Sodium Chloride (Sodium Chloride 0.9% 10 Ml Flush Syringe) 10 ml IV PRN PRN PRN Reason: LINE FLUSH Physical Examination - Vital Signs Vital Signs: Vital Signs Temp Pulse Resp BP Pulse Ox 98.7 F 101 H 16 144/112 94 10/18/21 17:35 10/18/21 17:35 10/18/21 17:35 10/18/21 17:35 10/18/21 17:35 - Constitutional General appearance: comfortable - EENT EENT: Present: PERRL, mucous membranes moist - Respiratory Respiratory: Present: lungs clear, rhonchi - Cardiovascular Cardiovascular: Present: regular rate, normal S1, normal S2 Extremities: Present: no peripheral edema bilatateraly, no clubbing, cyanosis - Gastrointestinal Gastrointestinal: Present: normoactive bowel sounds - Integumentary Integumentary: Present: normal - Neurologic Cranial nerve examination: PERRL, EOMI, intact Speech examination: other (confused disoriented not follow commands) Sensorimotor examination: intact Detailed motor examination: grossly full strength in Results - Laboratory Findings CBC and BMP: 10/19/21 04:36 10/19/21 04:36 Abnormal Lab Findings: Abnormal Labs 10/18/21 10/18/21 10/18/21 18:23 18:23 19:09 WBC 4.1 L RDW 16.6 H [place] % (Auto) 9.6 H Lymph # (Auto) 1.1 L BUN Glucose 208 H Direct Bilirubin 0.3 H AST 134 H ALT 94 H Total Creatine Kinase 10/18/21 10/19/21 10/19/21 19:09 04:36 04:36 WBC RDW 16.0 H [place] % (Auto) 8.6 H Lymph # (Auto) BUN 7 L Glucose 156 H Direct Bilirubin AST ALT Total Creatine Kinase 371 H Assessment and Plan Assessment and Plan 61-year-old male with known history of hypertension presenting to the emergency room today complaining of left upper extremity numbness or weakness started about 24 hours ago. He denies any chest pain or shortness of breath, no headache or dizziness and no diaphoresis. Denies any difficulty with his speech, denies any difficulty with swallowing. who was by the bedside indicates that patient has also had some difficulty with his gait. - Patient Problems # Altered mental status -presented to Er yesterday with confusion -CT brain is unremarkable -UDS is unremarkable -Fever 98 F -normal WBs -r/o viral meningitis -R/O Seizure Suggest -LP if posible -MRI brain with gd -STAT EEG -staret broad spectrum abs and cyclovir -Keppra 1000 mg Iv BID -Recommend Transfer to another facility due to lack of MRI and EEG over week end # Fever -Will await culture results. # Hypoxia -We will keep O2 saturation greater equal to 92%. # HTN (hypertension) -Will resume routine home medication and monitor vital signs closely. # Elevated liver enzymes -Etiology is unclear -Will check hepatitis profile. # DVT prophylaxis -Patient placed on subcutaneous heparin. # Full code status -Patient is full code. D/W PCP
[2021-10-19] MEDS ORDERED: MORPHINE 4 MG/1 ML INJ IV ONE (13:45)
[2021-10-19] MEDS: levETIRAcetam 1,000 MG in DEXTROSE 5% IN WATER 100 ML IV SCH ×2 (13:50→22:40)
[2021-10-19] MEDS: ACYCLOVIR 1,130 MG in SODIUM CHLORIDE 0.9% 100 ML IV SCH ×2 (14:20→22:55)
[2021-10-19] MEDS ORDERED: LORazepam 2 MG/ML VIAL IV NR (17:00)
[2021-10-19] MEDS: cefTRIAXone/NS 2 GM/100 ML 2 GM/100 ML BAG IV SCH (20:05)
[2021-10-19] MEDS: AMPICILLIN/NS 2 GM/100 ML 2 GM/100 ML BAG IV SCH ×2 (20:05→20:45)
[2021-10-20] MEDS: AMPICILLIN/NS 2 GM/100 ML 2 GM/100 ML BAG IV SCH ×4 (02:13→20:04)
[2021-10-20 05:17] LABS: Amphetamine Screen,Urine PRESUMPTIVE NEGATIVE; Benzodiazepines Screen,Urine PRESUMPTIVE NEGATIVE; Cannabinoid Screen,Urine PRESUMPTIVE NEGATIVE; Cocaine Screen,Urine PRESUMPTIVE NEGATIVE; Methadone Screen,Urine PRESUMPTIVE NEGATIVE; Opiate Screen,Urine PRESUMPTIVE NEGATIVE
[2021-10-20] MEDS: ACYCLOVIR 1,130 MG in SODIUM CHLORIDE 0.9% 100 ML IV SCH (06:00)
[2021-10-20] MEDS: cefTRIAXone/NS 2 GM/100 ML 2 GM/100 ML BAG IV SCH ×2 (06:01→18:02)
[2021-10-20 06:42] LABS: Basophils % (Auto) 0.4 % (0.0-1.8); Eosinophils # (Auto) 0.2 K/mm3 (0.0-0.4); Eosinophils % (Auto) 3.2 % (0.0-4.3); Hematocrit 43.7 % (35.5-45.6); Hemoglobin 14.6 gm/dl (11.8-15.2); Lymphocytes # (Auto) 1.3 K/mm3 (1.2-5.4); Lymphocytes % (Auto) 26.2 % (13.4-35.0); Mean Corpuscular HGB Conc 33 % (32-34); Mean Corpuscular Volume 90 fl (84-94); Monocytes # (Auto) 0.6 K/mm3 (0.0-0.8); Platelet Count 234 K/mm3 (140-440); Red Blood Count 4.88 M/mm3 (3.65-5.03); Red Cell Distribution Width 16.1 % (13.2-15.2)
[2021-10-20 06:59] LABS: Alanine Aminotransferase 87 units/L (7-56); Albumin 3.8 g/dL (3.9-5); BUN/Creatinine Ratio 13; Blood Urea Nitrogen 10 mg/dL (9-20); Calcium 9.2 mg/dL (8.4-10.2); Hemolysis Index 9
[2021-10-20] MEDS: levETIRAcetam 1,000 MG in DEXTROSE 5% IN WATER 100 ML IV SCH ×2 (10:00→23:00)
[2021-10-20] MEDS ORDERED: HALOPERIDOL LACTATE 5 MG/1 ML INJ IM PRN (10:05)
--- NOTE | 2021-10-20 10:34 | Progress Note ---
Assessment and Plan Assessment and Plan 61-year-old male with known history of hypertension presenting to the emergency room today complaining of left upper extremity numbness or weakness started about 24 hours ago. He denies any chest pain or shortness of breath, no headache or dizziness and no diaphoresis. Denies any difficulty with his speech, denies any difficulty with swallowing. who was by the bedside indicates that patient has also had some difficulty with his gait. - Patient Problems # Altered mental status -presented to Er yesterday with confusion -CT brain is unremarkable -UDS is unremarkable -Fever 98 F -normal WBs -r/o viral meningitis -R/O Seizure Suggest -LP if posible-- attempted last evening but was unsuccessful -MRI brain with gd -STAT EEG pending -staret broad spectrum abs and cyclovir -Keppra 1000 mg Iv BID -Recommend Transfer to another facility due to lack of MRI and EEG over week end -Ativan prn for agitation ,avoid haldol --trigger seizure # Fever -Will await culture results. # Hypoxia -We will keep O2 saturation greater equal to 92%. # HTN (hypertension) -Will resume routine home medication and monitor vital signs closely. # Elevated liver enzymes -Etiology is unclear -Will check hepatitis profile. # DVT prophylaxis -Patient placed on subcutaneous heparin. # Full code status -Patient is full code. D/W PCP Subjective Date of service: 10/20/21 Interval history: was confusrd last night today he is slightly better respond s to calling his name, move all extremities knows his birthday , Objective - Vital Sign Vital Signs - 12hr 10/19/21 10/20/21 10/20/21 22:45 02:17 04:42 Temperature 99.2 F Pulse Rate 88 Respiratory 20 Rate Blood Pressure 151/101 Blood Pressure 159/90 [Left] O2 Sat by Pulse 100 95 Oximetry 10/20/21 09:43 Temperature 98.4 F Pulse Rate 87 Respiratory Rate Blood Pressure Blood Pressure 145/95 [Left] O2 Sat by Pulse 95 Oximetry - General Apperance Constitutional: comfortable - EENT EENT: PERRL, mucous membranes moist - Respiratory Respiratory: lungs clear, rhonchi - Cardiovascular Cardiovascular: regular rate, normal S1, normal S2 Extremities: no peripheral edema bilat, no clubbing, cyanosis - Gastrointestinal Gastrointestinal: normoactive bowel sounds - Integumentary Integumentary: normal - Neurologic Cranial nerve examination: PERRL, EOMI, intact Speech examination: intact Detailed motor examination: grossly full strength in - Laboratory Findings CBC and BMP: 10/20/21 05:49 10/20/21 05:49 Abnormal Lab Findings: Abnormal Labs 10/18/21 10/18/21 10/18/21 18:23 18:23 19:09 WBC 4.1 L RDW 16.6 H [place] % (Auto) 9.6 H Lymph # (Auto) 1.1 L BUN Glucose 208 H POC Glucose Direct Bilirubin 0.3 H AST 134 H ALT 94 H Total Creatine Kinase Albumin 10/18/21 10/19/21 10/19/21 19:09 04:36 04:36 WBC RDW 16.0 H [place] % (Auto) 8.6 H Lymph # (Auto) BUN 7 L Glucose 156 H POC Glucose Direct Bilirubin AST ALT Total Creatine Kinase 371 H Albumin 10/19/21 10/20/21 10/20/21 22:22 05:49 05:49 WBC RDW 16.1 H [place] % (Auto) 12.0 H Lymph # (Auto) BUN Glucose 162 H POC Glucose 174 H Direct Bilirubin AST 46 H ALT 87 H Total Creatine Kinase Albumin 3.8 L
[2021-10-20] MEDS: LORazepam 2 MG/ML VIAL IV PRN ×4 (10:38→23:45)
--- NOTE | 2021-10-20 14:58 | Gastroenterology Consultation ---
History of Present Illness - Reason for Consult Consult date: 10/20/21 abnormal liver enzymes Requesting physician: SHANNEN MORRIS - History of Present Illness The patient is a 55 yo male who presented with fevers, constitutional symptoms and AMS. Pt sleeping and not providing history at time of exam. History primarily gathered from chart review. 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 noted to have abnormal liver enzy mes on admission for which gi consulted. hepatocellular pattern with improved repeat levels. had elevated liver enzymes in 2015 as well per chart review. Past History Past Medical History: hypertension Past Surgical History: No surgical history Social history: no significant social history Family history: no significant family history Medications and Allergies Allergies Allergy/AdvReac Type Severity Reaction Status Date / Time No Known Allergies Allergy Verified 03/17/15 19:11 Home Medications Medication Instructions Recorded Confirmed Last Taken Type predniSONE [Deltasone] 20 mg PO QDAY #4 tab 01/03/20 10/19/21 Unknown Rx Active Meds: Active Medications Acetaminophen (Acetaminophen 325 Mg Tab) 650 mg PO Q4H PRN PRN Reason: Pain MILD(1-3)/Fever >100.5/JENKINS Sodium Chloride (Nacl 0.9% 1000 Ml) 1,000 mls @ 75 mls/hr IV DIRECT BOB Last Admin: 10/19/21 20:06 Dose: 75 mls/hr Levetiracetam 1,000 mg/ (Dextrose) 110 mls @ 400 mls/hr IV Q12HR BBO Last Admin: 10/20/21 10:00 Dose: 400 mls/hr Ceftriaxone Sodium (Rocephin/Ns 2 Gm/100 Ml) 2 gm in 100 mls @ 200 mls/hr IV Q12H BOB; Protocol Last Admin: 10/20/21 06:01 Dose: 200 mls/hr Ampicillin Sodium (Ampicillin/Ns 2 Gm/100 Ml) 2 gm in 100 mls @ 100 mls/hr IV Q6H BOB; Protocol Stop: 10/21/21 14:59 Last Admin: 10/20/21 10:19 Dose: 100 mls/hr Acyclovir 800 mg/ Sodium (Chloride) 116 mls @ 100 mls/hr IV Q8HR BOB; Protocol Stop: 10/25/21 23:59 Thiamine HCl 250 mg/ Sodium (Chloride) 52.5 mls @ 100 mls/hr IV QDAY BOB Stop: 10/23/21 11:59 Lorazepam (Lorazepam 2 Mg/Ml Vial) 2 mg IV PUBLIC HEALTH ASSISTANT NR Stop: 10/20/21 23:59 Lorazepam (Lorazepam 2 Mg/Ml Vial) 2 mg IV Q4H PRN PRN Reason: Agitation Last Admin: 10/20/21 10:38 Dose: 2 mg Magnesium Hydroxide (Magnesium Hydroxide (Mom) Oral Liqd Udc) 30 ml PO Q4H PRN PRN Reason: Constipation Ondansetron HCl (Ondansetron 4 Mg/2 Ml Inj) 4 mg IV Q8H PRN PRN Reason: Nausea And Vomiting Sodium Chloride (Sodium Chloride 0.9% 10 Ml Flush Syringe) 10 ml IV BID BOB Last Admin: 10/20/21 10:19 Dose: 10 ml Sodium Chloride (Sodium Chloride 0.9% 10 Ml Flush Syringe) 10 ml IV PRN PRN PRN Reason: LINE FLUSH reviewed/updated patient's home and current medications Review of Systems - Review of Systems ROS unobtainable: due to mental status Exam - Constitutional Vital Signs: Temp Pulse Resp BP Pulse Ox 98.9 F 87 22 165/114 100 10/20/21 10:57 10/20/21 10:57 10/20/21 10:57 10/20/21 10:57 10/20/21 10:57 General appearance: no acute distress, other (sleeping, non-verbal) - Respiratory Respiratory effort: normal Respiratory: bilateral: CTA - Cardiovascular Rhythm: regular Heart Sounds: Present: S1 & S2 Extremities: No edema - Gastrointestinal General gastrointestinal: Present: soft, non-distended - Neurologic Neurological: disoriented - Labs CBC & Chem 7: 10/20/21 05:49 10/20/21 05:49 Lab Results: Laboratory Results - last 24 hr 10/19/21 10/20/21 10/20/21 22:22 04:30 05:49 WBC 5.1 RBC 4.88 Hgb 14.6 Hct 43.7 MCV 90 MCH 30 MCHC 33 RDW 16.1 H Plt Count 234 Lymph % (Auto) 26.2 [place] % (Auto) 12.0 H Eos % (Auto) 3.2 Baso % (Auto) 0.4 Lymph # (Auto) 1.3 [place] # (Auto) 0.6 Eos # (Auto) 0.2 Baso # (Auto) 0.0 Seg Neutrophils % 58.2 Seg Neutrophils # 3.0 ESR Sodium Potassium Chloride Carbon Dioxide Anion Gap BUN Creatinine Estimated GFR BUN/Creatinine Ratio Glucose POC Glucose 174 H Calcium Total Bilirubin AST ALT Alkaline Phosphatase C-Reactive Protein Total Protein Albumin Albumin/Globulin Ratio Procalcitonin Urine Opiates Screen Presumptive negative Urine Methadone Screen Presumptive negative Ur Barbiturates Screen Presumptive negative Ur Phencyclidine Scrn Presumptive negative Ur Amphetamines Screen Presumptive negative U Benzodiazepines Scrn Presumptive negative Urine Cocaine Screen Presumptive negative U Marijuana (THC) Screen Presumptive negative Drugs of Abuse Note Disclamer 10/20/21 10/20/21 10/20/21 05:49 05:49 07:49 WBC RBC Hgb Hct MCV MCH MCHC RDW Plt Count Lymph % (Auto) [place] % (Auto) Eos % (Auto) Baso % (Auto) Lymph # (Auto) [place] # (Auto) Eos # (Auto) Baso # (Auto) Seg Neutrophils % Seg Neutrophils # ESR 17 Sodium 138 Potassium 4.0 Chloride 103.6 Carbon Dioxide 23 Anion Gap 15 BUN 10 Creatinine 0.8 Estimated GFR > 60 BUN/Creatinine Ratio 13 Glucose 162 H POC Glucose Calcium 9.2 Total Bilirubin 0.70 AST 46 H ALT 87 H Alkaline Phosphatase 67 C-Reactive Protein 0.40 Total Protein 7.1 Albumin 3.8 L Albumin/Globulin Ratio 1.2 Procalcitonin 0.09 Urine Opiates Screen Urine Methadone Screen Ur Barbiturates Screen Ur Phencyclidine Scrn Ur Amphetamines Screen U Benzodiazepines Scrn Urine Cocaine Screen U Marijuana (THC) Screen Drugs of Abuse Note Assessment and Plan 1. Abnormal liver enzymes - improved on f/u labs. similar elevation in 2014. unclear if related to other symptoms/viral syndrome presentation. monitor from gi stand point and if remains stable, no further gi work-up needed at this time. will sign off, please call as needed.
--- NOTE | 2021-10-20 16:19 | Progress Note ---
Assessment and Plan 55-year-old male who presents emergency room with altered mental status and fever. Patient has no significant past medical history. Patient visited somebody in [place] during the weekend and returned after 2 to 3 days. He was experiencing nausea vomiting and diarrhea since Thursday but did not seek medical attention. He was noted to have a fever, drowsiness and confusion and brought to ED. Patient unable to provide any history since confused. Patient brother later in the ER course presented at bedside and reported that the patient had abdominal pain, diarrhea, nausea, vomiting for 1 week. The brother brought him to the ER because he was confused and febrile. Initial evaluation, patient found to be hypoxic and the patient was placed on supplemental oxygen. Patient remained on supplemental oxygen entire time in the ER. Patient given fluids and the patient's heart rate improved. Due to patient's altered mental status, a head CT was done. Patient's head CT was negative for acute findings. For the fever, the patient had a chest x-ray which was negative for acute findings. Patient had an abdominal CT for the abdominal pain. Patient done with C was negative for acute findings. Patient had a chest CT due to the tachycardia and hypoxia. Patient's chest CT was negative for acute findings. CTA showed no PE. -- Repeat CT head showed no acute process. wait for LP by IR and ID recommendation (1) Altered mental status with fever Current Visit: Yes Status: Acute Qualifiers: Altered mental status type: unspecified Qualified Code(s): R41.82 - Altered mental status, unspecified Plan to address problem: Etiology is unclear but concerning for central system infection like meningitis/encephalitis. No seizure activity reported. Preceded by nausea/vomiting and diarrhea after returning from a brief trip to [place]. Very somnolent, confused with incoherent speech. Neurology consulted and attempted LP but unsuccessful. Interventional radiology not available during the weekend for LP. Receiving acyclovir, Rocephin and ampicillin for broad-spectrum co verage for meningitis/encephalitis. Dr. Romero, ID consulted on phone and discussed the case. Neurology also started Keppra for seizure prophylaxis. Continue neurochecks, aspiration precautions, seizure precautions. We will keep n.p.o. and continue IV fluids for hydration. Urine drug screen ordered but not yet performed as patient was unable to make urine. Blood alcohol level negative. CT head, CTA chest and CT abdomen/pelvis unremarkable. Blood cultures pending. Neurology recommended MRI brain EEG: pending during weekend Ordered repeat CT head and showed no acute change, will hold transfer for now According to the son, patient does not use alcohol, tobacco or illicit drugs. No significant past medical history provided. (2) Fever with nausea, vomiting, diarrhea and elevated LFTs but no leukocytosis Current Visit: Yes Status: Acute Qualifiers: Fever type: unspecified Qualified Code(s): R50.9 - Fever, unspecified Plan to address problem: CT chest and CT abdomen negative for pneumonia or inflammatory changes. Suggestive of viral syndrome. COVID-19 test negative. Will await culture results. (3) Hypoxia noted in ED Current Visit: Yes Status: Acute Plan to address problem: Currently patient has no respiratory distress, lungs clear. We will keep O2 saturation greater equal to 92%. (4) HTN (hypertension) Current Visit: No Status: Acute Plan to address problem: Currently stable (5) Elevated liver enzymes Current Visit: Yes Status: Acute Plan to address problem: Etiology is unclear, likely part of acute viral syndrome Will check hepatitis profile. (6) DVT prophylaxis Current Visit: No Status: Acute Plan to address problem: Change heparin to SCDs in anticipation of LP (7) Full code status Current Visit: No Status: Acute Plan to address problem: Patient is full code. Discussed with patient's family at bedside Subjective Date of service: 10/20/21 Interval history: Patient remains very somnolent, confused and febrile. Hemodynamically stable. Patient is arousable but goes back to sleep quickly. Verbal but confused. Unable to provide history. family at bedside Objective - Exam Narrative Exam: General appearance: Present: no acute distress, well-nourished, other (Very somnolent and confused) - EENT Eyes: Present: PERRL (No gaze preference) ENT: clear oral mucosa - Neck Neck: Present: supple - Respiratory Respiratory effort: normal Respiratory: bilateral: CTA - Cardiovascular Rhythm: regular - Extremities Extremities: No edema - Abdominal General gastrointestinal: soft, non-tender, non-distended, normal bowel sounds - Integumentary Integumentary: Absent: rash - Neurologic Neurologic: other (Very somnolent, arousable but goes back to sleep quickly, minimally verbal but incoherent. Pupils normal/equal. Face symmetrical. MOVES all extremities to noxious stimuli. No focal extremity weakness on gross exam. No involuntary movements.) - Constitutional Vitals: Vital Signs - 12hr 10/20/21 10/20/21 10/20/21 04:42 09:43 10:00 Temperature 99.2 F 98.4 F Pulse Rate 88 87 Respiratory 20 Rate Blood Pressure 151/101 Blood Pressure 145/95 [Left] O2 Sat by Pulse 95 95 96 Oximetry 10/20/21 10/20/21 10:57 14:00 Temperature 98.9 F Pulse Rate 87 Respiratory 22 Rate Blood Pressure 165/114 Blood Pressure [Left] O2 Sat by Pulse 100 100 Oximetry - Labs CBC & Chem 7: 10/20/21 05:49 10/20/21 05:49 Labs: Abnormal lab results 10/19/21 10/20/21 10/20/21 Range/Units 22:22 05:49 05:49 RDW 16.1 H (13.2-15.2) % [place] % (Auto) 12.0 H (0.0-7.3) % Glucose 162 H (75-100) mg/dL POC Glucose 174 H (70-105) mg/dL AST 46 H (5-40) units/L ALT 87 H (7-56) units/L Albumin 3.8 L (3.9-5) g/dL HEART Score - HEART Score Troponin: Troponin T < 0.010 ng/mL (0.00-0.029) 10/18/21 19:09
[2021-10-20] MEDS: ACYCLOVIR 800 MG in SODIUM CHLORIDE 0.9% 100 ML IV SCH ×2 (16:32→21:28)
--- NOTE | 2021-10-20 17:16 | Cat Scan Report ---
NONENHANCED CT SCAN OF THE HEAD: INDICATION / CLINICAL INFORMATION: 55 years Male; AMS. TECHNIQUE: Routine CT head without contrast. All CT scans at this location are performed using CT dos e reduction for ALARA by means of automated exposure control. COMPARISON: CT scan of the head from 10/18/2021 FINDINGS: BRAIN / INTRACRANIAL CONTENTS: No this is a limited CT scan due to motion related artifacts. Best pos sible images were obtained. Mr. De was combative and uncooperative while scanning. These images have poor [id number]. No acute hemorrhage mass effect or midline shift. Because of poor [id number], unable to comment on subtle findings in the brain. CRANIOCERVICAL JUNCTION: No significant abnormality. ORBITS: No significant abnormality of visualized orbits. SINUSES / MASTOIDS: Retention cyst in the left sphenoid sinus and inferior right maxillary sinus ADDITIONAL FINDINGS: None. IMPRESSION: Limited CT scan of the brain; best possible images were obtained; no large hemorrhage, ma ss lesion or midline shift Signer Name: Katherine Mora MD Signed: 10/20/2021 5:11 PM Workstation Name: [id number]
[2021-10-20] MEDS: THIAMINE 250 MG in SODIUM CHLORIDE 0.9% 50 ML IV SCH (17:19)
[2021-10-20] MEDS ORDERED: hydrALAZINE 20 MG/1 ML INJ IV ONE (17:50)
[2021-10-21] MEDS: AMPICILLIN/NS 2 GM/100 ML 2 GM/100 ML BAG IV SCH ×4 (02:20→20:24)
[2021-10-21] MEDS: D5W/0.9% NACL 1,000 ML IV SCH (05:13)
[2021-10-21] MEDS: ACYCLOVIR 800 MG in SODIUM CHLORIDE 0.9% 100 ML IV SCH ×3 (05:13→22:33)
[2021-10-21] MEDS: LORazepam 2 MG/ML VIAL IV PRN ×3 (06:14→15:51)
[2021-10-21] MEDS: cefTRIAXone/NS 2 GM/100 ML 2 GM/100 ML BAG IV SCH ×2 (06:48→19:55)
--- NOTE | 2021-10-21 09:07 | Progress Note ---
Assessment and Plan Assessment and plan: 55-year-old male who presents emergency room with altered mental status and fever. Patient has no significant past medical history. Patient visited somebody in [place] during the weekend and returned after 2 to 3 days. He was experiencing nausea vomiting and diarrhea since Thursday but did not seek medical attention. He was noted to have a fever, drowsiness and confusion and brought to ED. Patient unable to provide any history since confused. Patient brother later in the ER course presented at bedside and reported that the patient had abdominal pain, diarrhea, nausea, vomiting for 1 week. The brother brought him to the ER because he was confused and febrile. Initial evaluation, patient found to be hypoxic and the patient was placed on supplemental oxygen. Patient remained on supplemental oxygen entire time in the ER. Patient given fluids and the patient's heart rate improved. Due to patient's altered mental status, a head CT was done. Patient's head CT was negative for acute findings. For the fever, the patient had a chest x-ray which was negative for acute findings. Patient had an abdominal CT for the abdominal pain. Patient done with C was negative for acute findings. Patient had a chest CT due to the tachycardia and hypoxia. Patient's chest CT was negative for acute findings. CTA showed no PE. -- Repeat CT head showed no acute process. LP was scheduled for today --Toxic metabolic encephalopathy [altered mental status with fever] Etiology is unclear but concerning for central system infection like meningitis/encephalitis. No seizure activity reported. Preceded by nausea/vomiting and diarrhea after returning from a brief trip to [place]. Very somnolent, confused with incoherent speech. Neurology consulted and attempted LP but unsuccessful. Interventional radiology not available during the weekend for LP. Receiving acyclovir, Rocephin and ampicillin for broad-spectrum coverage for meningitis/encephalitis. ASHKAN Jones consulted on phone and discussed the case. Neurology also started Keppra for seizure prophylaxis. Continue neurochecks, aspiration precautions, seizure precautions. We will keep n.p.o. and continue IV fluids for hydration. Urine drug screen ordered but not yet performed as patient was unable to make urine. Blood alcohol level negative. CT head, CTA chest and CT abdomen/pelvis unremarkable. Blood cultures pending. Neurology recommended MRI brain EEG: pending during weekend Ordered repeat CT head and showed no acute change, will hold transfer for now According to the son, patient does not use alcohol, tobacco or illicit drugs. No significant past medical history provided. --Acute sepsis; Criteria;, fever, tachycardia, hypoxia, possible meningitis Liver failure, continue empiric antibiotics Status post lumbar puncture, follow fluid analysis ID following --Febrile illness; CT chest and CT abdomen negative for pneumonia or inflammatory changes. Suggestive of viral syndrome. COVID-19 test negative. Will await culture results. --Hypoxia noted in ED Currently patient has no respiratory distress, lungs clear. We will keep O2 saturation greater equal to 92%. --HTN (hypertension) Currently stable --Elevated liver enzymes Etiology is unclear, likely part of acute viral syndrome Will check hepatitis profile. --DVT prophylaxis Change heparin to SCDs in anticipation of LP --Full code status Patient is full code. Closely monitor the patient and adjust management as needed Plan of care reviewed with patient, family at the bedside, patient's nurse Patient is scheduled for lumbar puncture today, followed by fluid analysis History Interval history: I have seen and examined the patient at the bedside Patient's chart medications tests and reports reviewed Patient scheduled for fluoroscopic guided lumbar puncture Vital signs noted Hospitalist Physical - Constitutional Vitals: Temp Pulse Resp BP Pulse Ox 98.3 F 103 H 20 144/91 91 10/21/21 05:32 10/21/21 05:32 10/21/21 05:32 10/21/21 05:32 10/21/21 05:32 General appearance: Present: no acute distress, well-nourished - EENT Eyes: Present: PERRL, EOM intact - Neck Neck: Present: supple, normal ROM - Respiratory Respiratory effort: normal Respiratory: bilateral: diminished, negative: rales, rhonchi, wheezing - Cardiovascular Rhythm: regular Heart Sounds: Present: S1 & S2 - Extremities Extremities: no ischemia, No edema - Abdominal General gastrointestinal: soft, non-tender, non-distended, normal bowel sounds - Integumentary Integumentary: Present: clear, warm - Psychiatric Psychiatric: appropriate mood/affect, cooperative - Neurologic Neurologic: CNII-XII intact, moves all extremities HEART Score - HEART Score Troponin: Troponin T < 0.010 ng/mL (0.00-0.029) 10/18/21 19:09 Results - Labs CBC & Chem 7: 10/20/21 05:49 10/20/21 05:49 Labs: Laboratory Last Values WBC 5.1 K/mm3 (4.5-11.0) 10/20/21 05:49 RBC 4.88 M/mm3 (3.65-5.03) 10/20/21 05:49 Hgb 14.6 gm/dl (11.8-15.2) 10/20/21 05:49 Hct 43.7 % (35.5-45.6) 10/20/21 05:49 MCV 90 fl (84-94) 10/20/21 05:49 MCH 30 pg (28-32) 10/20/21 05:49 MCHC 33 % (32-34) 10/20/21 05:49 RDW 16.1 % (13.2-15.2) H 10/20/21 05:49 Plt Count 234 K/mm3 (140-440) 10/20/21 05:49 Lymph % (Auto) 26.2 % (13.4-35.0) 10/20/21 05:49 [place] % (Auto) 12.0 % (0.0-7.3) H 10/20/21 05:49 Eos % (Auto) 3.2 % (0.0-4.3) 10/20/21 05:49 Baso % (Auto) 0.4 % (0.0-1.8) 10/20/21 05:49 Lymph # (Auto) 1.3 K/mm3 (1.2-5.4) 10/20/21 05:49 [place] # (Auto) 0.6 K/mm3 (0.0-0.8) 10/20/21 05:49 Eos # (Auto) 0.2 K/mm3 (0.0-0.4) 10/20/21 05:49 Baso # (Auto) 0.0 K/mm3 (0.0-0.1) 10/20/21 05:49 Seg Neutrophils % 58.2 % (40.0-70.0) 10/20/21 05:49 Seg Neutrophils # 3.0 K/mm3 (1.8-7.7) 10/20/21 05:49 ESR 17 mm/Hr (0-20) 10/20/21 07:49 Sodium 138 mmol/L (137-145) 10/20/21 05:49 Potassium 4.0 mmol/L (3.6-5.0) 10/20/21 05:49 Chloride 103.6 mmol/L (98-107) 10/20/21 05:49 Carbon Dioxide 23 mmol/L (22-30) 10/20/21 05:49 Anion Gap 15 mmol/L 10/20/21 05:49 BUN 10 mg/dL (9-20) 10/20/21 05:49 Creatinine 0.8 mg/dL (0.8-1.3) 10/20/21 05:49 Estimated GFR > 60 ml/min 10/20/21 05:49 BUN/Creatinine Ratio 13 % 10/20/21 05:49 Glucose 162 mg/dL (75-100) H 10/20/21 05:49 POC Glucose 174 mg/dL (70-105) H 10/19/21 22:22 Lactic Acid 1.50 mmol/L (0.7-2.0) 10/18/21 20:16 Calcium 9.2 mg/dL (8.4-10.2) 10/20/21 05:49 Total Bilirubin 0.70 mg/dL (0.1-1.2) 10/20/21 05:49 Direct Bilirubin 0.3 mg/dL (0-0.2) H 10/18/21 19:09 Indirect Bilirubin 0.4 mg/dL 10/18/21 19:09 AST 46 units/L (5-40) H 10/20/21 05:49 ALT 87 units/L (7-56) H 10/20/21 05:49 Alkaline Phosphatase 67 units/L (35-129) 10/20/21 05:49 Ammonia 25.0 umol/L (25-60) 10/18/21 19:09 Total Creatine Kinase 371 units/L (55-170) H 10/18/21 19:09 Troponin T < 0.010 ng/mL (0.00-0.029) 10/18/21 19:09 C-Reactive Protein 0.40 mg/dL (0.00-1.30) 10/20/21 05:49 Total Protein 7.1 g/dL (6.3-8.2) 10/20/21 05:49 Albumin 3.8 g/dL (3.9-5) L 10/20/21 05:49 Albumin/Globulin Ratio 1.2 % 10/20/21 05:49 Procalcitonin 0.09 ng/mL (<0.15) 10/20/21 05:49 Urine Color Yellow (Yellow) 10/18/21 22:08 Urine Turbidity Clear (Clear) 10/18/21 22:08 Urine pH 6.0 (5.0-7.0) 10/18/21 22:08 Ur Specific [place] 1.019 (1.003-1.030) 10/18/21 22:08 Urine Protein <15 mg/dl mg/dL (Negative) 10/18/21 22:08 Urine Glucose (UA) 150 mg/dL (Negative) 10/18/21 22:08 Urine Ketones Neg mg/dL (Negative) 10/18/21 22:08 Urine Blood Neg (Negative) 10/18/21 22:08 Urine Nitrite Neg (Negative) 10/18/21 22:08 Urine Bilirubin Neg (Negative) 10/18/21 22:08 Urine Urobilinogen 4.0 mg/dL (<2.0) 10/18/21 22:08 Ur Leukocyte Esterase Neg (Negative) 10/18/21 22:08 Urine WBC (Auto) 2.0 /HPF (0.0-6.0) 10/18/21 22:08 Urine RBC (Auto) 1.0 /HPF (0.0-6.0) 10/18/21 22:08 U Epithel Cells (Auto) < 1.0 /HPF (0-13.0) 10/18/21 22:08 Urine Mucus Few /HPF 10/18/21 22:08 Urine Opiates Screen Presumptive negative 10/20/21 04:30 Urine Methadone Screen Presumptive negative 10/20/21 04:30 Ur Barbiturates Screen Presumptive negative 10/20/21 04:30 Ur Phencyclidine Scrn Presumptive negative 10/20/21 04:30 Ur Amphetamines Screen Presumptive negative 10/20/21 04:30 U Benzodiazepines Scrn Presumptive negative 10/20/21 04:30 Urine Cocaine Screen Presumptive negative 10/20/21 04:30 U Marijuana (THC) Screen Presumptive negative 10/20/21 04:30 Drugs of Abuse Note Disclamer 10/20/21 04:30 Plasma/Serum Alcohol < 0.01 % (0-0.07) 10/18/21 19:09 Coronavirus (PCR) Negative (Negative) 10/19/21 09:10 Hep Bs Antigen Non-reactive (Negative) 10/19/21 00:14 Hep B Core IgM Ab Non-reactive (NonReactive) 10/19/21 00:14 Hepatitis C Antibody Non-reactive (NonReactive) 10/19/21 00:14 Microbiology: Microbiology 10/18/21 19:00 Peripheral/Venous Blood Culture - Preliminary NO GROWTH AFTER 48 HOURS 10/18/21 19:00 Peripheral/Venous Blood Culture - Preliminary NO GROWTH AFTER 48 HOURS Diaz/IV: Voiding Method Condom Catheter Active Medications - Current Medications Current Medications: Generic Name Dose Route Start Last Admin Trade Name Freq PRN Reason Stop Dose Admin Acetaminophen 650 mg 10/18/21 23:41 Acetaminophen 325 Mg Tab PO Q4H PRN Pain MILD(1-3)/Fever >100.5/JENKINS Levetiracetam 1,000 mg/ 110 mls @ 400 mls/hr 10/19/21 13:00 10/20/21 23:00 Dextrose IV 400 mls/hr Q12HR BOB Administration Ceftriaxone Sodium 2 gm in 100 mls @ 200 mls/hr 10/19/21 18:00 10/21/21 06:48 Rocephin/Ns 2 Gm/100 Ml IV 200 mls/hr Q12H BOB Administration Protocol Ampicillin Sodium 2 gm in 100 mls @ 100 mls/hr 10/19/21 20:00 10/21/21 02:20 Ampicillin/Ns 2 Gm/100 Ml IV 10/21/21 14:59 100 mls/hr Q6H BOB Administration Protocol Acyclovir 800 mg/ Sodium 116 mls @ 100 mls/hr 10/20/21 14:00 10/21/21 05:13 Chloride IV 10/25/21 23:59 100 mls/hr Q8HR BOB Administration Protocol Thiamine HCl 250 mg/ Sodium 52.5 mls @ 100 mls/hr 10/20/21 12:00 10/20/21 17:19 Chloride IV 10/23/21 11:59 100 mls/hr QDAY BOB Administration Dextrose/Sodium Chloride 1,000 mls @ 75 mls/hr 10/21/21 05:00 10/21/21 05:13 D5ns IV 75 mls/hr DIRECT BOB Administration Lorazepam 2 mg 10/20/21 11:00 10/21/21 06:14 Lorazepam 2 Mg/Ml Vial IV 2 mg Q4H PRN Administration Agitation Magnesium Hydroxide 30 ml 10/18/21 23:41 Magnesium Hydroxide (Mom) Oral Liqd Udc PO Q4H PRN Constipation Ondansetron HCl 4 mg 10/18/21 23:41 Ondansetron 4 Mg/2 Ml Inj IV Q8H PRN Nausea And Vomiting Sodium Chloride 10 ml 10/19/21 10:00 10/20/21 21:30 Sodium Chloride 0.9% 10 Ml Flush Syringe IV 10 ml BID BOB Administration Sodium Chloride 10 ml 10/18/21 23:41 Sodium Chloride 0.9% 10 Ml Flush Syringe IV PRN PRN LINE FLUSH Nutrition/Malnutrition Assess - Dietary Evaluation Nutrition/Malnutrition Findings: Nutrition Notes Start: 10/19/21 11:18 Freq: Status: Active Protocol: Document 10/19/21 11:18 [facility] (Rec: 10/19/21 11:22 [facility] [id number]) Nutrition Notes Need for Assessment generated from: hardness tester,MST Initial or Follow up Assessment Current Diagnosis Hypertension Other Pertinent Diagnosis AMS, Fever, Hypoxia Current Diet Cardiac Labs/Tests Reviewed Pertinent Medications Reviewed Height 5 ft 8 in Weight 113.398 kg [place] Body Weight (kg) 70.00 BMI 38.0 Weight Status Obese Subjective/Other Information Pt screened for malnutrition and skin risks (no Vernon score available). Burn Absent Trauma Absent Minimum of two criteria No #1 Nutrition Diagnosis Predicted suboptimal energy intake Etiology AMS As Evidenced by Signs and Symptoms pt confused upon admission Is patient on ventilator? No Is Patient Ambulatory and/or Out of Bed No REE-([facility]-confined to bed) 2336.100 Kcal/Kg value to use for calculation 16 Approximate Energy Requirements Using 1814 kcal/Kg Calculation Used for Recommendations Kcal/kg Additional Notes Pro needs 0.8-1g/kg adjBW: 73- 92g/day Fluid needs 1ml/kcal Nutrition Intervention Change Diet Order: Continue current diet order Goal #1 PO intakes to meet at least 75 % energy and pro needs Anticipated Discharge Needs: None identified at this time Follow-Up By: 10/23/21 Additional Comments F/U: intakes
[2021-10-21] MEDS: THIAMINE 250 MG in SODIUM CHLORIDE 0.9% 50 ML IV SCH (10:02)
[2021-10-21] MEDS: levETIRAcetam 1,000 MG in DEXTROSE 5% IN WATER 100 ML IV SCH ×2 (10:02→22:37)
[2021-10-21 10:55] LABS: INR 0.91 (0.87-1.13)
[2021-10-21 10:56] LABS: Partial Thromboplastin Time 28.9 Sec. (24.2-36.6)
--- NOTE | 2021-10-21 13:15 | Electrocardiograph Report ---
[facility] Test Date: 2021-10-18 Test Time: 17:48:48 Pat Name: LAXMI BRIZUELA Department: Room: A385 1 Gender: M [employer]/Draftsman: MUNIR : 1965 Requested By: FERNANDO COOPER III Order Number: [id number] Reading MD: Vladimir Mclean Measurements Intervals [place] Rate: 103 P: 44 MA: 153 QRS: -2 QRSD: 93 T: 3 QT: 346 QTc: 453 Interpretive Statements Sinus tachycardia No previous ECG available for comparison Electronically Signed On 10-21-2021 13:14:59 EDT by Vladimir Mclean
--- NOTE | 2021-10-21 13:40 | Procedure Note ---
Date of procedure: 10/21/21 Pre-op diagnosis: mental status changes Post-op diagnosis: same Procedure: flouro guided lumbar puncture Findings: none Anesthesia: local Surgeon: SEBASTIAN REID Estimated blood loss: none Pathology: list (4 tubes) Specimen disposition: to lab Condition: stable Disposition: floor
--- NOTE | 2021-10-21 13:46 | Fluoroscopy Report ---
LUMBAR PUNCTURE INDICATION : Mental status changes, progressive weakness in lower extremities PROCEDURE: The risks (including but not limited to bleeding, infection, and spinal headache) and el efits were explained to the patient and informed consent was obtained. A time out procedure was perf ormed. The procedure site was prepped and draped in the usual sterile fashion and lidocaine was used for local anesthesia. Under fluoroscopic guidance, a 22-gauge spinal needle was advanced into the L3-4 interlaminar space. The opening pressure was 110 mm H2O which was calculated by adding the length of the needle (9 cm) to the height of the CSF column. 4 separate collection tubes were acquired with one-2 cc of CSF each. S amples were sent to the lab per the ordering physician specifications for further evaluation. The patient tolerated the procedure well with no complications. IMPRESSION: Successful lumbar puncture as outlined above. Opening pressure was 110 mm H20. Fluoroscopic time: 0.8 Number of fluoroscopic images: 2 Signer Name: Tyler Pizano Jr, MD Signed: 10/21/2021 1:41 PM Workstation Name: [id number]
--- NOTE | 2021-10-21 14:30 | Consultation ---
History of Present Illness - Reason for Consult Consult date: 10/21/21 - History of Present Illness 55-year-old man medical history hypertension presented to hospital complaining of altered mental status and fevers. He was brought to the hospital by his brother. Discussed with Dr. Rudolph over the weekend, there was concern for meningitis and he was placed on empiric antibiotics, LP was performed today. Febrile on admission to 101, afebrile since then. White count 5.1. Blood cultures no growth so far. Imaging personally reviewed: Chest CTA: No acute findings CT abdomen pelvis: Rounded focus of enhancement within the left lobe. Past History Past Medical History: hypertension Past Surgical History: No surgical history Social history: no significant social history Family history: no significant family history Medications and Allergies Allergies Allergy/AdvReac Type Severity Reaction Status Date / Time No Known Allergies Allergy Verified 03/17/15 19:11 Home Medications Medication Instructions Recorded Confirmed Last Taken Type predniSONE [Deltasone] 20 mg PO QDAY #4 tab 01/03/20 10/19/21 Unknown Rx Active Meds: Active Medications Acetaminophen (Acetaminophen 325 Mg Tab) 650 mg PO Q4H PRN PRN Reason: Pain MILD(1-3)/Fever >100.5/JENKINS Levetiracetam 1,000 mg/ (Dextrose) 110 mls @ 400 mls/hr IV Q12HR BOB Last Admin: 10/21/21 10:02 Dose: 400 mls/hr Ceftriaxone Sodium (Rocephin/Ns 2 Gm/100 Ml) 2 gm in 100 mls @ 200 mls/hr IV Q12H BOB; Protocol Last Admin: 10/21/21 06:48 Dose: 200 mls/hr Ampicillin Sodium (Ampicillin/Ns 2 Gm/100 Ml) 2 gm in 100 mls @ 100 mls/hr IV Q6H BOB; Protocol Stop: 10/21/21 14:59 Last Admin: 10/21/21 11:00 Dose: 100 mls/hr Acyclovir 800 mg/ Sodium (Chloride) 116 mls @ 100 mls/hr IV Q8HR BOB; Protocol Stop: 10/25/21 23:59 Last Admin: 10/21/21 14:12 Dose: 100 mls/hr Thiamine HCl 250 mg/ Sodium (Chloride) 52.5 mls @ 100 mls/hr IV QDAY BOB Stop: 10/23/21 11:59 Last Admin: 10/21/21 10:02 Dose: 100 mls/hr Dextrose/Sodium Chloride (D5ns) 1,000 mls @ 75 mls/hr IV DIRECT [facility] Last Admin: 10/21/21 05:13 Dose: 75 mls/hr Lorazepam (Lorazepam 2 Mg/Ml Vial) 2 mg IV Q4H PRN PRN Reason: Agitation Last Admin: 10/21/21 10:30 Dose: 2 mg Magnesium Hydroxide (Magnesium Hydroxide (Mom) Oral Liqd Udc) 30 ml PO Q4H PRN PRN Reason: Constipation Ondansetron HCl (Ondansetron 4 Mg/2 Ml Inj) 4 mg IV Q8H PRN PRN Reason: Nausea And Vomiting Sodium Chloride (Sodium Chloride 0.9% 10 Ml Flush Syringe) 10 ml IV BID [facility] Last Admin: 10/21/21 10:02 Dose: 10 ml Sodium Chloride (Sodium Chloride 0.9% 10 Ml Flush Syringe) 10 ml IV PRN PRN PRN Reason: LINE FLUSH Review of Systems ROS unobtainable: due to mental status Physical Examination - Physical Exam Narrative exam: Physical Exam: Constitutional: Alert, confused Head, Ears, Nose: Normocephalic, atraumatic. External ears, nose normal Eyes: Conjunctivae/corneas clear. No icterus. No ptosis. Neck: Supple, no meningeal signs Oral: dentition fair, no thrush Cardiovascular: S1, S2 normal. Respiratory: Good air entry, clear to auscultation bilaterally GI: Soft, non-tender; bowel sounds normal. No peritoneal signs. Musculoskeletal: No pedal edema, no cyanosis. Skin: No rash or abscess Hem/Lymphatic: No palpable cervical or supraclavicular nodes. No lymphangitis Psych: Confused Neurological: Awake, confused - Constitutional Vitals: Vital Signs Temp Pulse Resp BP Pulse Ox 98.3 F 103 H 20 144/91 91 10/21/21 05:32 10/21/21 05:32 10/21/21 05:32 10/21/21 05:32 10/21/21 05:32 Temperature -Last 24 Hours Temperature 98.3 F Temperature 99.0 F Temperature 98.2 F Results - Labs CBC & Chem 7: 10/20/21 05:49 10/20/21 05:49 Assessment and Plan Cultures: Blood culture no growth so far A/P: 55-year-old man past medical history hypertension now with: #Acute sepsis: Present with fevers and tachycardia. Possibly secondary to meningitis. Pending LP results. Fevers have improved since admission with empiric antibiotics and antivirals. #Altered mental status: Possible secondary meningitis. Await LP results as above. Recs: -Follow-up LP analysis and cultures -Continue empiric antibiotics and aciclovir pending results. -Follow-up cultures Thank you for the consult, we will continue to follow. Mikaela Romero MD [facility] ([facility]) O: [phone] F: [phone]
[2021-10-22] MEDS: AMPICILLIN/NS 2 GM/100 ML 2 GM/100 ML BAG IV SCH ×4 (02:12→20:55)
[2021-10-22] MEDS: cefTRIAXone/NS 2 GM/100 ML 2 GM/100 ML BAG IV SCH ×2 (05:42→17:25)
[2021-10-22] MEDS: ACYCLOVIR 800 MG in SODIUM CHLORIDE 0.9% 100 ML IV SCH ×3 (05:43→22:36)
[2021-10-22] MEDS: D5W/0.9% NACL 1,000 ML IV SCH (06:02)
[2021-10-22] MEDS: levETIRAcetam 1,000 MG in DEXTROSE 5% IN WATER 100 ML IV SCH ×2 (10:00→22:36)
--- NOTE | 2021-10-22 10:57 | Magnetic Resonance Report ---
MR brain wo/w con INDICATION / CLINICAL INFORMATION: Altered level of consciousness/fever. TECHNIQUE: Multiplanar, multisequence MR images of the brain were obtained. COMPARISON: Oct [address] head FINDINGS: INTRACRANIAL: No restricted diffusion. No hemorrhage. Ventricular caliber is normal. No extra-axial c ollection. No mass. No herniation. Major intracranial vascular flow voids are preserved. No abnormal enhancement. ORBITS: No significant abnormality of visualized orbits. SINUSES / MASTOIDS: No significant abnormality of visualized sinuses and mastoid air cells. ADDITIONAL FINDINGS: None. IMPRESSION: 1. No significant intracranial abnormality. Signer Name: Derrick Bell MD Signed: 10/22/2021 10:53 AM Workstation Name: [id number]
[2021-10-22] MEDS: THIAMINE 250 MG in SODIUM CHLORIDE 0.9% 50 ML IV SCH (12:14)
--- NOTE | 2021-10-22 14:12 | Progress Note ---
Assessment and Plan Cultures: Blood culture no growth so far A/P: 55-year-old man past medical history hypertension now with: #Acute sepsis: Present with fevers and tachycardia. Possibly secondary to meningitis. Pending LP results. Fevers have improved since admission with empiric antibiotics and antivirals. #Altered mental status: Possible secondary meningitis. Await LP results as above. Recs: -Follow-up LP analysis and cultures -Continue empiric antibiotics and aciclovir pending results. -Follow-up cultures Thank you for the consult, we will continue to follow. Mikaela Romero MD [facility] ([facility]) O: [phone] F: [phone] Subjective Date of service: 10/22/21 Interval history: Afebrile, normal white count. Cultures remain negative. No CSF analysis available as yet. Imaging personally reviewed: Brain MRI: No acute abnormality. Objective - Exam Narrative Exam: Physical Exam: Constitutional: Alert, confused Head, Ears, Nose: Normocephalic, atraumatic. External ears, nose normal Eyes: Conjunctivae/corneas clear. No icterus. No ptosis. Neck: Supple, no meningeal signs Oral: dentition fair, no thrush Cardiovascular: S1, S2 normal. Respiratory: Good air entry, clear to auscultation bilaterally GI: Soft, non-tender; bowel sounds normal. No peritoneal signs. Musculoskeletal: No pedal edema, no cyanosis. Skin: No rash or abscess Hem/Lymphatic: No palpable cervical or supraclavicular nodes. No lymphangitis Psych: Confused Neurological: Awake, confused - Constitutional Vitals: Vital Signs Temp Pulse Resp BP Pulse Ox 98.0 F 99 H 18 141/103 95 10/22/21 11:34 10/22/21 11:34 10/22/21 11:34 10/22/21 11:34 10/22/21 11:34 Temperature -Last 24 Hours Temperature 98.0 F Temperature 98.4 F Temperature 98.9 F Temperature 98.9 F - Labs CBC & Chem 7: 10/20/21 05:49 10/20/21 05:49
--- NOTE | 2021-10-22 15:09 | Progress Note ---
Assessment and Plan Assessment and plan: 55-year-old male who presents emergency room with altered mental status and fever. Patient has no significant past medical history. Patient visited somebody in [place] during the weekend and returned after 2 to 3 days. He was experiencing nausea vomiting and diarrhea since Thursday but did not seek medical attention. He was noted to have a fever, drowsiness and confusion and brought to ED. Patient unable to provide any history since confused. Patient brother later in the ER course presented at bedside and reported that the patient had abdominal pain, diarrhea, nausea, vomiting for 1 week. The brother brought him to the ER because he was confused and febrile. Initial evaluation, patient found to be hypoxic and the patient was placed on supplemental oxygen. Patient remained on supplemental oxygen entire time in the ER. Patient given fluids and the patient's heart rate improved. Due to patient's altered mental status, a head CT was done. Patient's head CT was negative for acute findings. For the fever, the patient had a chest x-ray which was negative for acute findings. Patient had an abdominal CT for the abdominal pain. Patient done with C was negative for acute findings. Patient had a chest CT due to the tachycardia and hypoxia. Patient's chest CT was negative for acute findings. CTA showed no PE. -- Repeat CT head showed no acute process. LP was scheduled for today --Toxic metabolic encephalopathy [altered mental status with fever] Etiology is unclear but concerning for central system infection like meningitis/encephalitis. No seizure activity reported. Preceded by nausea/vomiting and diarrhea after returning from a brief trip to [place]. Very somnolent, confused with incoherent speech. Neurology consulted and attempted LP but unsuccessful. Interventional radiology not available during the weekend for LP. Receiving acyclovir, Rocephin and ampicillin for broad-spectrum coverage for meningitis/encephalitis. ASHKAN Jones consulted on phone and discussed the case. Neurology also started Keppra for seizure prophylaxis. Continue neurochecks, aspiration precautions, seizure precautions. We will keep n.p.o. and continue IV fluids for hydration. Urine drug screen ordered but not yet performed as patient was unable to make urine. Blood alcohol level negative. CT head, CTA chest and CT abdomen/pelvis unremarkable. Blood cultures pending. Neurology recommended MRI brain EEG: pending during weekend Ordered repeat CT head and showed no acute change, will hold transfer for now According to the son, patient does not use alcohol, tobacco or illicit drugs. No significant past medical history provided. --Acute sepsis; Criteria;, fever, tachycardia, hypoxia, possible meningitis Liver failure, continue empiric antibiotics Status post lumbar puncture, follow fluid analysis ID following --Febrile illness; CT chest and CT abdomen negative for pneumonia or inflammatory changes. Suggestive of viral syndrome. COVID-19 test negative. Will await culture results. --Hypoxia noted in ED Currently patient has no respiratory distress, lungs clear. We will keep O2 saturation greater equal to 92%. --HTN (hypertension) Currently stable --Elevated liver enzymes Etiology is unclear, likely part of acute viral syndrome Will check hepatitis profile. --DVT prophylaxis Change heparin to SCDs in anticipation of LP --Full code status Patient is full code. Closely monitor the patient and adjust management as needed Plan of care reviewed with patient, family at the bedside, patient's nurse Patient is scheduled for lumbar puncture today, followed by fluid analysis History Interval history: No new overnight events reported by the nursing Patient feels better no new complaints Vital signs noted Afebrile Hospitalist Physical - Constitutional Vitals: Temp Pulse Resp BP Pulse Ox 98.0 F 99 H 18 141/103 95 10/22/21 11:34 10/22/21 11:34 10/22/21 11:34 10/22/21 11:34 10/22/21 11:34 General appearance: Present: no acute distress, well-nourished - EENT Eyes: Present: PERRL, EOM intact - Neck Neck: Present: supple, normal ROM - Respiratory Respiratory effort: normal Respiratory: bilateral: diminished, negative: rales, rhonchi, wheezing - Cardiovascular Rhythm: regular Heart Sounds: Present: S1 & S2 - Extremities Extremities: no ischemia, No edema - Abdominal General gastrointestinal: soft, non-tender, non-distended, normal bowel sounds - Integumentary Integumentary: Present: clear, warm - Psychiatric Psychiatric: appropriate mood/affect, cooperative - Neurologic Neurologic: moves all extremities HEART Score - HEART Score Troponin: Troponin T < 0.010 ng/mL (0.00-0.029) 10/18/21 19:09 Results - Labs CBC & Chem 7: 10/20/21 05:49 10/20/21 05:49 Labs: Laboratory Last Values WBC 5.1 K/mm3 (4.5-11.0) 10/20/21 05:49 RBC 4.88 M/mm3 (3.65-5.03) 10/20/21 05:49 Hgb 14.6 gm/dl (11.8-15.2) 10/20/21 05:49 Hct 43.7 % (35.5-45.6) 10/20/21 05:49 MCV 90 fl (84-94) 10/20/21 05:49 MCH 30 pg (28-32) 10/20/21 05:49 MCHC 33 % (32-34) 10/20/21 05:49 RDW 16.1 % (13.2-15.2) H 10/20/21 05:49 Plt Count 234 K/mm3 (140-440) 10/20/21 05:49 Lymph % (Auto) 26.2 % (13.4-35.0) 10/20/21 05:49 [place] % (Auto) 12.0 % (0.0-7.3) H 10/20/21 05:49 Eos % (Auto) 3.2 % (0.0-4.3) 10/20/21 05:49 Baso % (Auto) 0.4 % (0.0-1.8) 10/20/21 05:49 Lymph # (Auto) 1.3 K/mm3 (1.2-5.4) 10/20/21 05:49 [place] # (Auto) 0.6 K/mm3 (0.0-0.8) 10/20/21 05:49 Eos # (Auto) 0.2 K/mm3 (0.0-0.4) 10/20/21 05:49 Baso # (Auto) 0.0 K/mm3 (0.0-0.1) 10/20/21 05:49 Seg Neutrophils % 58.2 % (40.0-70.0) 10/20/21 05:49 Seg Neutrophils # 3.0 K/mm3 (1.8-7.7) 10/20/21 05:49 ESR 17 mm/Hr (0-20) 10/20/21 07:49 PT 13.2 Sec. (12.2-14.9) 10/21/21 10:14 INR 0.91 (0.87-1.13) 10/21/21 10:14 APTT 28.9 Sec. (24.2-36.6) 10/21/21 10:14 Sodium 138 mmol/L (137-145) 10/20/21 05:49 Potassium 4.0 mmol/L (3.6-5.0) 10/20/21 05:49 Chloride 103.6 mmol/L (98-107) 10/20/21 05:49 Carbon Dioxide 23 mmol/L (22-30) 10/20/21 05:49 Anion Gap 15 mmol/L 10/20/21 05:49 BUN 10 mg/dL (9-20) 10/20/21 05:49 Creatinine 0.8 mg/dL (0.8-1.3) 10/20/21 05:49 Estimated GFR > 60 ml/min 10/20/21 05:49 BUN/Creatinine Ratio 13 % 10/20/21 05:49 Glucose 162 mg/dL (75-100) H 10/20/21 05:49 POC Glucose 174 mg/dL (70-105) H 10/19/21 22:22 Lactic Acid 0.90 mmol/L (0.7-2.0) 10/22/21 09:11 Calcium 9.2 mg/dL (8.4-10.2) 10/20/21 05:49 Total Bilirubin 0.70 mg/dL (0.1-1.2) 10/20/21 05:49 Direct Bilirubin 0.3 mg/dL (0-0.2) H 10/18/21 19:09 Indirect Bilirubin 0.4 mg/dL 10/18/21 19:09 AST 46 units/L (5-40) H 10/20/21 05:49 ALT 87 units/L (7-56) H 10/20/21 05:49 Alkaline Phosphatase 67 units/L (35-129) 10/20/21 05:49 Ammonia 25.0 umol/L (25-60) 10/18/21 19:09 Total Creatine Kinase 371 units/L (55-170) H 10/18/21 19:09 Troponin T < 0.010 ng/mL (0.00-0.029) 10/18/21 19:09 C-Reactive Protein 0.40 mg/dL (0.00-1.30) 10/20/21 05:49 Total Protein 7.1 g/dL (6.3-8.2) 10/20/21 05:49 Albumin 3.8 g/dL (3.9-5) L 10/20/21 05:49 Albumin/Globulin Ratio 1.2 % 10/20/21 05:49 Procalcitonin 0.09 ng/mL (<0.15) 10/20/21 05:49 Urine Color Yellow (Yellow) 10/18/21 22:08 Urine Turbidity Clear (Clear) 10/18/21 22:08 Urine pH 6.0 (5.0-7.0) 10/18/21 22:08 Ur Specific [place] 1.019 (1.003-1.030) 10/18/21 22:08 Urine Protein <15 mg/dl mg/dL (Negative) 10/18/21 22:08 Urine Glucose (UA) 150 mg/dL (Negative) 10/18/21 22:08 Urine Ketones Neg mg/dL (Negative) 10/18/21 22:08 Urine Blood Neg (Negative) 10/18/21 22:08 Urine Nitrite Neg (Negative) 10/18/21 22:08 Urine Bilirubin Neg (Negative) 10/18/21 22:08 Urine Urobilinogen 4.0 mg/dL (<2.0) 10/18/21 22:08 Ur Leukocyte Esterase Neg (Negative) 10/18/21 22:08 Urine WBC (Auto) 2.0 /HPF (0.0-6.0) 10/18/21 22:08 Urine RBC (Auto) 1.0 /HPF (0.0-6.0) 10/18/21 22:08 U Epithel Cells (Auto) < 1.0 /HPF (0-13.0) 10/18/21 22:08 Urine Mucus Few /HPF 10/18/21 22:08 Urine Opiates Screen Presumptive negative 10/20/21 04:30 Urine Methadone Screen Presumptive negative 10/20/21 04:30 Ur Barbiturates Screen Presumptive negative 10/20/21 04:30 Ur Phencyclidine Scrn Presumptive negative 10/20/21 04:30 Ur Amphetamines Screen Presumptive negative 10/20/21 04:30 U Benzodiazepines Scrn Presumptive negative 10/20/21 04:30 Urine Cocaine Screen Presumptive negative 10/20/21 04:30 U Marijuana (THC) Screen Presumptive negative 10/20/21 04:30 Drugs of Abuse Note Disclamer 10/20/21 04:30 Plasma/Serum Alcohol < 0.01 % (0-0.07) 10/18/21 19:09 Coronavirus (PCR) Negative (Negative) 10/19/21 09:10 Hep Bs Antigen Non-reactive (Negative) 10/19/21 00:14 Hep B Core IgM Ab Non-reactive (NonReactive) 10/19/21 00:14 Hepatitis C Antibody Non-reactive (NonReactive) 10/19/21 00:14 Microbiology: Microbiology 10/18/21 19:00 Peripheral/Venous Blood Culture - Preliminary NO GROWTH AFTER 72 HOURS 10/18/21 19:00 Peripheral/Venous Blood Culture - Preliminary NO GROWTH AFTER 72 HOURS 10/21/21 12:30 Cerebral Spinal Fluid CSF Culture - Preliminary Diaz/IV: Voiding Method Incontinent Active Medications - Current Medications Current Medications: Generic Name Dose Route Start Last Admin Trade Name Freq PRN Reason Stop Dose Admin Acetaminophen 650 mg 10/18/21 23:41 Acetaminophen 325 Mg Tab PO Q4H PRN Pain MILD(1-3)/Fever >100.5/JENKINS Levetiracetam 1,000 mg/ 110 mls @ 400 mls/hr 10/19/21 13:00 10/22/21 10:00 Dextrose IV 400 mls/hr Q12HR BOB Administration Ceftriaxone Sodium 2 gm in 100 mls @ 200 mls/hr 10/19/21 18:00 10/22/21 05:42 Rocephin/Ns 2 Gm/100 Ml IV 200 mls/hr Q12H BOB Administration Protocol Ampicillin Sodium 2 gm in 100 mls @ 100 mls/hr 10/19/21 20:00 10/22/21 10:30 Ampicillin/Ns 2 Gm/100 Ml IV 100 mls/hr Q6H BOB Administration Protocol Acyclovir 800 mg/ Sodium 116 mls @ 100 mls/hr 10/20/21 14:00 10/22/21 14:40 Chloride IV 100 mls/hr Q8HR BOB Administration Protocol Thiamine HCl 250 mg/ Sodium 52.5 mls @ 100 mls/hr 10/20/21 12:00 10/22/21 12:14 Chloride IV 10/23/21 11:59 100 mls/hr QDAY BOB Administration Dextrose/Sodium Chloride 1,000 mls @ 75 mls/hr 10/21/21 05:00 10/22/21 06:02 D5ns IV 75 mls/hr DIRECT BOB Administration Lorazepam 2 mg 10/20/21 11:00 10/21/21 15:51 Lorazepam 2 Mg/Ml Vial IV 2 mg Q4H PRN Administration Agitation Magnesium Hydroxide 30 ml 10/18/21 23:41 Magnesium Hydroxide (Mom) Oral Liqd Udc PO Q4H PRN Constipation Ondansetron HCl 4 mg 10/18/21 23:41 Ondansetron 4 Mg/2 Ml Inj IV Q8H PRN Nausea And Vomiting Sodium Chloride 10 ml 10/19/21 10:00 10/22/21 12:17 Sodium Chloride 0.9% 10 Ml Flush Syringe IV 10 ml BID BOB Administration Sodium Chloride 10 ml 10/18/21 23:41 Sodium Chloride 0.9% 10 Ml Flush Syringe IV PRN PRN LINE FLUSH Nutrition/Malnutrition Assess - Dietary Evaluation Nutrition/Malnutrition Findings: Nutrition Notes Start: 10/19/21 11:18 Freq: Status: Active Protocol: Document 10/19/21 11:18 PENDING SALE TO [facility] (Rec: 10/19/21 11:22 PENDING SALE TO [facility] [id number]) Nutrition Notes 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 Burn Absent Trauma Absent Minimum of two criteria No #1 Nutrition Diagnosis Predicted suboptimal energy intake Etiology AMS As Evidenced by Signs and Symptoms pt confused upon admission Is patient on ventilator? No Is Patient Ambulatory and/or Out of Bed No REE-([facility]-confined to bed) 2336.100 Kcal/Kg value to use for calculation 16 Approximate Energy Requirements Using 1814 kcal/Kg Calculation Used for Recommendations Kcal/kg Additional Notes Pro needs 0.8-1g/kg adjBW: 73- 92g/day Fluid needs 1ml/kcal Nutrition Intervention Change Diet Order: Continue current diet order Goal #1 PO intakes to meet at least 75 % energy and pro needs Anticipated Discharge Needs: None identified at this time Follow-Up By: 10/23/21 Additional Comments F/U: intakes
[2021-10-22] MEDS ORDERED: amLODIPine 5 MG TAB PO ONE (17:54)
[2021-10-23] MEDS: AMPICILLIN/NS 2 GM/100 ML 2 GM/100 ML BAG IV SCH ×4 (02:08→22:46)
[2021-10-23] MEDS: ACYCLOVIR 800 MG in SODIUM CHLORIDE 0.9% 100 ML IV SCH ×3 (05:50→22:46)
[2021-10-23] MEDS: cefTRIAXone/NS 2 GM/100 ML 2 GM/100 ML BAG IV SCH ×2 (06:09→18:15)
--- NOTE | 2021-10-23 08:28 | Progress Note ---
Assessment and Plan Assessment and plan: 55-year-old male who presents emergency room with altered mental status and fever. Patient has no significant past medical history. Patient visited somebody in [place] during the weekend and returned after 2 to 3 days. He was experiencing nausea vomiting and diarrhea since Thursday but did not seek medical attention. He was noted to have a fever, drowsiness and confusion and brought to ED. Patient unable to provide any history since confused. Patient brother later in the ER course presented at bedside and reported that the patient had abdominal pain, diarrhea, nausea, vomiting for 1 week. The brother brought him to the ER because he was confused and febrile. Initial evaluation, patient found to be hypoxic and the patient was placed on supplemental oxygen. Patient remained on supplemental oxygen entire time in the ER. Patient given fluids and the patient's heart rate improved. Due to patient's altered mental status, a head CT was done. Patient's head CT was negative for acute findings. For the fever, the patient had a chest x-ray which was negative for acute findings. Patient had an abdominal CT for the abdominal pain. Patient done with C was negative for acute findings. Patient had a chest CT due to the tachycardia and hypoxia. Patient's chest CT was negative for acute findings. CTA showed no PE. Repeat CT head showed no acute process. s/p LP 10/21/21 sent for CSF analysis, continue empiric antibiotics for possible meningitis per ID Follow-up pending CSF fluid analysis test reports --Toxic metabolic encephalopathy [altered mental status with fever] Rule out meningitis, lumbar puncture done and CSF fluid sent for analysis Patient symptoms slightly improved, patient is on empiric antibiotics for meningitis ampicillin, Rocephin, acyclovir Continue pending CSF reports, continue supportive care ID following Urine drug screen ordered but not yet performed as patient was unable to make urine. Blood alcohol level negative. CT head, CTA chest and CT abdomen/pelvis unremarkable. Blood cultures pending. Neurology recommended MRI brain EEG: pending during weekend Ordered repeat CT head and showed no acute change, According to the son, patient does not use alcohol, tobacco or illicit drugs. No significant past medical history provided. --Acute sepsis; Criteria;, fever, tachycardia, hypoxia, possible meningitis Liver failure, continue empiric antibiotics Status post lumbar puncture, follow fluid analysis ID following --Febrile illness; CT chest and CT abdomen negative for pneumonia or inflammatory changes. Suggestive of viral syndrome. COVID-19 test negative. Will await culture results. --Hypoxia noted in ED Currently patient has no respiratory distress, lungs clear. Saturating well on room air, home O2 evaluation prior to discharge --HTN (hypertension) Currently stable --Elevated liver enzymes Etiology is unclear, likely part of acute viral syndrome Will check hepatitis profile. --DVT prophylaxis Change heparin to SCDs in anticipation of LP --Full code status Patient is full code. Closely monitor the patient and adjust management as needed Plan of care reviewed with patient, family at the bedside, patient's nurse History Interval history: I have Seen and examined the patient at the bedside Patient's chart and medications reviewed Patient feels slightly better, anxious to go home Patient is on empiric antibiotics for meningitis per ID CSF fluid analysis still pending. Hospitalist Physical - Constitutional Vitals: Temp Pulse Resp BP Pulse Ox 98.8 F 102 H 18 144/101 98 10/22/21 19:54 10/22/21 19:54 10/22/21 19:54 10/22/21 19:54 10/22/21 22:00 General appearance: Present: no acute distress, well-nourished - EENT Eyes: Present: PERRL, EOM intact - Neck Neck: Present: supple, normal ROM - Respiratory Respiratory effort: normal Respiratory: bilateral: diminished, negative: rales, rhonchi, wheezing - Cardiovascular Rhythm: regular Heart Sounds: Present: S1 & S2 - Extremities Extremities: no ischemia, No edema - Abdominal General gastrointestinal: soft, non-tender, non-distended, normal bowel sounds - Integumentary Integumentary: Present: clear, warm - Psychiatric Psychiatric: appropriate mood/affect, cooperative - Neurologic Neurologic: CNII-XII intact, moves all extremities HEART Score - HEART Score Troponin: Troponin T < 0.010 ng/mL (0.00-0.029) 10/18/21 19:09 Results - Labs CBC & Chem 7: 10/20/21 05:49 10/20/21 05:49 Labs: Laboratory Last Values WBC 5.1 K/mm3 (4.5-11.0) 10/20/21 05:49 RBC 4.88 M/mm3 (3.65-5.03) 10/20/21 05:49 Hgb 14.6 gm/dl (11.8-15.2) 10/20/21 05:49 Hct 43.7 % (35.5-45.6) 10/20/21 05:49 MCV 90 fl (84-94) 10/20/21 05:49 MCH 30 pg (28-32) 10/20/21 05:49 MCHC 33 % (32-34) 10/20/21 05:49 RDW 16.1 % (13.2-15.2) H 10/20/21 05:49 Plt Count 234 K/mm3 (140-440) 10/20/21 05:49 Lymph % (Auto) 26.2 % (13.4-35.0) 10/20/21 05:49 [place] % (Auto) 12.0 % (0.0-7.3) H 10/20/21 05:49 Eos % (Auto) 3.2 % (0.0-4.3) 10/20/21 05:49 Baso % (Auto) 0.4 % (0.0-1.8) 10/20/21 05:49 Lymph # (Auto) 1.3 K/mm3 (1.2-5.4) 10/20/21 05:49 [place] # (Auto) 0.6 K/mm3 (0.0-0.8) 10/20/21 05:49 Eos # (Auto) 0.2 K/mm3 (0.0-0.4) 10/20/21 05:49 Baso # (Auto) 0.0 K/mm3 (0.0-0.1) 10/20/21 05:49 Seg Neutrophils % 58.2 % (40.0-70.0) 10/20/21 05:49 Seg Neutrophils # 3.0 K/mm3 (1.8-7.7) 10/20/21 05:49 ESR 17 mm/Hr (0-20) 10/20/21 07:49 PT 13.2 Sec. (12.2-14.9) 10/21/21 10:14 INR 0.91 (0.87-1.13) 10/21/21 10:14 APTT 28.9 Sec. (24.2-36.6) 10/21/21 10:14 Sodium 138 mmol/L (137-145) 10/20/21 05:49 Potassium 4.0 mmol/L (3.6-5.0) 10/20/21 05:49 Chloride 103.6 mmol/L (98-107) 10/20/21 05:49 Carbon Dioxide 23 mmol/L (22-30) 10/20/21 05:49 Anion Gap 15 mmol/L 10/20/21 05:49 BUN 10 mg/dL (9-20) 10/20/21 05:49 Creatinine 0.8 mg/dL (0.8-1.3) 10/20/21 05:49 Estimated GFR > 60 ml/min 10/20/21 05:49 BUN/Creatinine Ratio 13 % 10/20/21 05:49 Glucose 162 mg/dL (75-100) H 10/20/21 05:49 POC Glucose 174 mg/dL (70-105) H 10/19/21 22:22 Lactic Acid 0.90 mmol/L (0.7-2.0) 10/22/21 09:11 Calcium 9.2 mg/dL (8.4-10.2) 10/20/21 05:49 Total Bilirubin 0.70 mg/dL (0.1-1.2) 10/20/21 05:49 Direct Bilirubin 0.3 mg/dL (0-0.2) H 10/18/21 19:09 Indirect Bilirubin 0.4 mg/dL 10/18/21 19:09 AST 46 units/L (5-40) H 10/20/21 05:49 ALT 87 units/L (7-56) H 10/20/21 05:49 Alkaline Phosphatase 67 units/L (35-129) 10/20/21 05:49 Ammonia 25.0 umol/L (25-60) 10/18/21 19:09 Total Creatine Kinase 371 units/L (55-170) H 10/18/21 19:09 Troponin T < 0.010 ng/mL (0.00-0.029) 10/18/21 19:09 C-Reactive Protein 0.40 mg/dL (0.00-1.30) 10/20/21 05:49 Total Protein 7.1 g/dL (6.3-8.2) 10/20/21 05:49 Albumin 3.8 g/dL (3.9-5) L 10/20/21 05:49 Albumin/Globulin Ratio 1.2 % 10/20/21 05:49 Procalcitonin 0.09 ng/mL (<0.15) 10/20/21 05:49 Urine Color Yellow (Yellow) 10/18/21 22:08 Urine Turbidity Clear (Clear) 10/18/21 22:08 Urine pH 6.0 (5.0-7.0) 10/18/21 22:08 Ur Specific [place] 1.019 (1.003-1.030) 10/18/21 22:08 Urine Protein <15 mg/dl mg/dL (Negative) 10/18/21 22:08 Urine Glucose (UA) 150 mg/dL (Negative) 10/18/21 22:08 Urine Ketones Neg mg/dL (Negative) 10/18/21 22:08 Urine Blood Neg (Negative) 10/18/21 22:08 Urine Nitrite Neg (Negative) 10/18/21 22:08 Urine Bilirubin Neg (Negative) 10/18/21 22:08 Urine Urobilinogen 4.0 mg/dL (<2.0) 10/18/21 22:08 Ur Leukocyte Esterase Neg (Negative) 10/18/21 22:08 Urine WBC (Auto) 2.0 /HPF (0.0-6.0) 10/18/21 22:08 Urine RBC (Auto) 1.0 /HPF (0.0-6.0) 10/18/21 22:08 U Epithel Cells (Auto) < 1.0 /HPF (0-13.0) 10/18/21 22:08 Urine Mucus Few /HPF 10/18/21 22:08 Urine Opiates Screen Presumptive negative 10/20/21 04:30 Urine Methadone Screen Presumptive negative 10/20/21 04:30 Ur Barbiturates Screen Presumptive negative 10/20/21 04:30 Ur Phencyclidine Scrn Presumptive negative 10/20/21 04:30 Ur Amphetamines Screen Presumptive negative 10/20/21 04:30 U Benzodiazepines Scrn Presumptive negative 10/20/21 04:30 Urine Cocaine Screen Presumptive negative 10/20/21 04:30 U Marijuana (THC) Screen Presumptive negative 10/20/21 04:30 Drugs of Abuse Note Disclamer 10/20/21 04:30 Plasma/Serum Alcohol < 0.01 % (0-0.07) 10/18/21 19:09 Coronavirus (PCR) Negative (Negative) 10/19/21 09:10 Hep Bs Antigen Non-reactive (Negative) 10/19/21 00:14 Hep B Core IgM Ab Non-reactive (NonReactive) 10/19/21 00:14 Hepatitis C Antibody Non-reactive (NonReactive) 10/19/21 00:14 Microbiology: Microbiology 10/21/21 12:30 Cerebral Spinal Fluid CSF Culture - Preliminary 10/18/21 19:00 Peripheral/Venous Blood Culture - Preliminary NO GROWTH AFTER 4 DAYS 10/18/21 19:00 Peripheral/Venous Blood Culture - Preliminary NO GROWTH AFTER 4 DAYS Diaz/IV: Voiding Method Urinal Active Medications - Current Medications Current Medications: Generic Name Dose Route Start Last Admin Trade Name Freq PRN Reason Stop Dose Admin Acetaminophen 650 mg 10/18/21 23:41 Acetaminophen 325 Mg Tab PO Q4H PRN Pain MILD(1-3)/Fever >100.5/JENKINS Amlodipine Besylate 10 mg 10/23/21 10:00 Amlodipine 10 Mg Tab PO DAILY [facility] Levetiracetam 1,000 mg/ 110 mls @ 400 mls/hr 10/19/21 13:00 10/22/21 22:36 Dextrose IV 400 mls/hr Q12HR BOB Administration Ceftriaxone Sodium 2 gm in 100 mls @ 200 mls/hr 10/19/21 18:00 10/23/21 06:09 Rocephin/Ns 2 Gm/100 Ml IV 200 mls/hr Q12H BOB Administration Protocol Ampicillin Sodium 2 gm in 100 mls @ 100 mls/hr 10/19/21 20:00 10/23/21 02:08 Ampicillin/Ns 2 Gm/100 Ml IV 100 mls/hr Q6H BOB Administration Protocol Acyclovir 800 mg/ Sodium 116 mls @ 100 mls/hr 10/20/21 14:00 10/23/21 05:50 Chloride IV 100 mls/hr Q8HR BOB Administration Protocol Thiamine HCl 250 mg/ Sodium 52.5 mls @ 100 mls/hr 10/20/21 12:00 10/22/21 12:14 Chloride IV 10/23/21 11:59 100 mls/hr QDAY BOB Administration Dextrose/Sodium Chloride 1,000 mls @ 75 mls/hr 10/21/21 05:00 10/22/21 06:02 D5ns IV 75 mls/hr DIRECT BOB Administration Lorazepam 2 mg 10/20/21 11:00 10/21/21 15:51 Lorazepam 2 Mg/Ml Vial IV 2 mg Q4H PRN Administration Agitation Magnesium Hydroxide 30 ml 10/18/21 23:41 Magnesium Hydroxide (Mom) Oral Liqd Udc PO Q4H PRN Constipation Miscellaneous Medication 20 mg 10/23/21 10:00 Olmesartan (Nf) PO QDAY BOB Ondansetron HCl 4 mg 10/18/21 23:41 Ondansetron 4 Mg/2 Ml Inj IV Q8H PRN Nausea And Vomiting Sodium Chloride 10 ml 10/19/21 10:00 10/22/21 22:37 Sodium Chloride 0.9% 10 Ml Flush Syringe IV 10 ml BID BOB Administration Sodium Chloride 10 ml 10/18/21 23:41 Sodium Chloride 0.9% 10 Ml Flush Syringe IV PRN PRN LINE FLUSH Nutrition/Malnutrition Assess - Dietary Evaluation Nutrition/Malnutrition Findings: Nutrition Notes Start: 10/19/21 11:18 Freq: Status: Active Protocol: Document 10/19/21 11:18 [facility] (Rec: 10/19/21 11:22 [facility] [id number]) 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 Burn Absent Trauma Absent Minimum of two criteria No #1 Nutrition Diagnosis Predicted suboptimal energy intake Etiology AMS As Evidenced by Signs and Symptoms pt confused upon admission Is patient on ventilator? No Is Patient Ambulatory and/or Out of Bed No REE-([facility]-confined to bed) 2336.100 Kcal/Kg value to use for calculation 16 Approximate Energy Requirements Using 1814 kcal/Kg Calculation Used for Recommendations Kcal/kg Additional Notes Pro needs 0.8-1g/kg adjBW: 73- 92g/day Fluid needs 1ml/kcal Nutrition Intervention Change Diet Order: Continue current diet order Goal #1 PO intakes to meet at least 75 % energy and pro needs Anticipated Discharge Needs: None identified at this time Follow-Up By: 10/23/21 Additional Comments F/U: intakes
[2021-10-23] MEDS ORDERED: OLMESARTAN 20 MG PO SCH (10:00)
[2021-10-23] MEDS: amLODIPine 10 MG TAB PO SCH (11:06)
[2021-10-23] MEDS: LOSARTAN 50 MG TAB PO SCH (11:15)
[2021-10-23] MEDS: THIAMINE 250 MG in SODIUM CHLORIDE 0.9% 50 ML IV SCH (11:15)
[2021-10-23] MEDS: levETIRAcetam 1,000 MG in DEXTROSE 5% IN WATER 100 ML IV SCH (11:15)
[2021-10-23] MEDS: D5W/0.9% NACL 1,000 ML IV SCH (15:43)
--- NOTE | 2021-10-23 18:44 | Progress Note ---
Assessment and Plan Cultures: Blood culture no growth so far A/P: 55-year-old man past medical history hypertension now with: #Acute sepsis: Present with fevers and tachycardia. Possibly secondary to meningitis. Pending LP results. Fevers have improved since admission with empiric antibiotics and antivirals. #Altered mental status: Possible secondary meningitis. Await LP results as above. Recs: -Follow-up LP analysis and cultures -Continue empiric antibiotics and aciclovir pending results. -Follow-up cultures Thank you for the consult, we will continue to follow. Mikaela Romero MD [facility] ([facility]) O: [phone] F: [phone] Subjective Date of service: 10/23/21 Interval history: Afebrile, normal white count. Cultures are remain negative. No analysis of CSF Objective - Exam Narrative Exam: Physical Exam: Constitutional: Alert, confused Head, Ears, Nose: Normocephalic, atraumatic. External ears, nose normal Eyes: Conjunctivae/corneas clear. No icterus. No ptosis. Neck: Supple, no meningeal signs Oral: dentition fair, no thrush Cardiovascular: S1, S2 normal. Respiratory: Good air entry, clear to auscultation bilaterally GI: Soft, non-tender; bowel sounds normal. No peritoneal signs. Musculoskeletal: No pedal edema, no cyanosis. Skin: No rash or abscess Hem/Lymphatic: No palpable cervical or supraclavicular nodes. No lymphangitis Psych: Confused Neurological: Awake, confused - Constitutional Vitals: Vital Signs Temp Pulse Resp BP Pulse Ox 98.3 F 94 H 18 146/93 94 10/23/21 16:54 10/23/21 12:12 10/23/21 16:54 10/23/21 16:54 10/23/21 12:12 Temperature -Last 24 Hours Temperature 98.3 F Temperature 97.8 F Temperature 97.8 F Temperature 98.8 F - Labs CBC & Chem 7: 10/20/21 05:49 10/20/21 05:49
[2021-10-23] MEDS: levETIRAcetam 500 MG TAB PO SCH (22:47)
[2021-10-24] MEDS: AMPICILLIN/NS 2 GM/100 ML 2 GM/100 ML BAG IV SCH ×4 (01:15→21:39)
[2021-10-24] MEDS: cefTRIAXone/NS 2 GM/100 ML 2 GM/100 ML BAG IV SCH ×2 (05:44→17:54)
[2021-10-24] MEDS: ACYCLOVIR 800 MG in SODIUM CHLORIDE 0.9% 100 ML IV SCH ×3 (05:45→21:39)
[2021-10-24 09:04] LABS: BUN/Creatinine Ratio 9; Blood Urea Nitrogen 7 mg/dL (9-20); Calcium 8.7 mg/dL (8.4-10.2); Hemolysis Index 3
[2021-10-24] MEDS: LOSARTAN 50 MG TAB PO SCH (09:39)
[2021-10-24] MEDS: amLODIPine 10 MG TAB PO SCH (09:39)
[2021-10-24] MEDS: levETIRAcetam 500 MG TAB PO SCH ×2 (09:39→21:39)
[2021-10-24 09:58] LABS: Alanine Aminotransferase 54 units/L (7-56); Albumin 3.5 g/dL (3.9-5)
[2021-10-24 10:00] LABS: Bilirubin,Direct < 0.2 mg/dL (0-0.2)
[2021-10-24 12:52] LABS: ANA Screen, IFA Negative (Negative)
--- NOTE | 2021-10-24 13:25 | Progress Note ---
Assessment and Plan Assessment and plan: 55-year-old male who presents emergency room with altered mental status and fever. Patient has no significant past medical history. Patient visited somebody in [place] during the weekend and returned after 2 to 3 days. He was experiencing nausea vomiting and diarrhea since Thursday but did not seek medical attention. He was noted to have a fever, drowsiness and confusion and brought to ED. Patient unable to provide any history since confused. Patient brother later in the ER course presented at bedside and reported that the patient had abdominal pain, diarrhea, nausea, vomiting for 1 week. The brother brought him to the ER because he was confused and febrile. Initial evaluation, patient found to be hypoxic and the patient was placed on supplemental oxygen. Patient remained on supplemental oxygen entire time in the ER. Patient given fluids and the patient's heart rate improved. Due to patient's altered mental status, a head CT was done. Patient's head CT was negative for acute findings. For the fever, the patient had a chest x-ray which was negative for acute findings. Patient had an abdominal CT for the abdominal pain. Patient done with C was negative for acute findings. Patient had a chest CT due to the tachycardia and hypoxia. Patient's chest CT was negative for acute findings. CTA showed no PE. Repeat CT head showed no acute process. s/p LP 10/21/21 sent for CSF analysis, continue empiric antibiotics for possible meningitis per ID Follow-up pending CSF fluid analysis test reports --Toxic metabolic encephalopathy [altered mental status with fever] Rule out meningitis, lumbar puncture done and CSF fluid sent for analysis Patient symptoms slightly improved, patient is on empiric antibiotics for meningitis ampicillin, Rocephin, acyclovir Continue pending CSF reports, continue supportive care ID following Urine drug screen ordered but not yet performed as patient was unable to make urine. Blood alcohol level negative. CT head, CTA chest and CT abdomen/pelvis unremarkable. Blood cultures pending. Neurology recommended MRI brain EEG: pending during weekend Ordered repeat CT head and showed no acute change, According to the son, patient does not use alcohol, tobacco or illicit drugs. No significant past medical history provided. --Acute sepsis; Criteria;, fever, tachycardia, hypoxia, possible meningitis Liver failure, continue empiric antibiotics Status post lumbar puncture, follow fluid analysis ID following --Febrile illness; CT chest and CT abdomen negative for pneumonia or inflammatory changes. Suggestive of viral syndrome. COVID-19 test negative. Will await culture results. --Hypoxia noted in ED Currently patient has no respiratory distress, lungs clear. Saturating well on room air, home O2 evaluation prior to discharge --HTN (hypertension) Currently stable --Elevated liver enzymes Etiology is unclear, likely part of acute viral syndrome Will check hepatitis profile. --DVT prophylaxis Change heparin to SCDs in anticipation of LP --Full code status Patient is full code. Closely monitor the patient and adjust management as needed Plan of care reviewed with patient, family at the bedside, patient's nurse 10/24/2021; patient feels slightly better anxious to go edie. Persistent sepsis status post lumbar puncture, fluid analysis still pending Patient is on acyclovir ampicillin and Rocephin CSF cultures negative History Interval history: I have seen and examined the patient at the bedside Patient's chart and medications reviewed Patient feels slightly better Patient is on empiric antibiotics for meningitis Pending CSF analysis and rep, vital signs noted vital signs noted orts ID following Hospitalist Physical - Constitutional Vitals: Temp Pulse Resp BP Pulse Ox 98.6 F 85 18 152/92 94 10/24/21 11:14 10/24/21 11:14 10/24/21 11:14 10/24/21 11:14 10/24/21 11:14 General appearance: Present: no acute distress, well-nourished - EENT Eyes: Present: PERRL, EOM intact - Neck Neck: Present: supple, normal ROM - Respiratory Respiratory effort: normal Respiratory: bilateral: diminished, wheezing, negative: rales, rhonchi - Cardiovascular Rhythm: regular Heart Sounds: Present: S1 & S2 - Extremities Extremities: no ischemia, No edema - Abdominal General gastrointestinal: soft, non-tender, non-distended, normal bowel sounds - Integumentary Integumentary: Present: clear, warm - Psychiatric Psychiatric: appropriate mood/affect, cooperative - Neurologic Neurologic: CNII-XII intact, moves all extremities HEART Score - HEART Score Troponin: Troponin T < 0.010 ng/mL (0.00-0.029) 10/18/21 19:09 Results - Labs CBC & Chem 7: 10/20/21 05:49 10/24/21 08:25 Labs: Laboratory Last Values WBC 5.1 K/mm3 (4.5-11.0) 10/20/21 05:49 RBC 4.88 M/mm3 (3.65-5.03) 10/20/21 05:49 Hgb 14.6 gm/dl (11.8-15.2) 10/20/21 05:49 Hct 43.7 % (35.5-45.6) 10/20/21 05:49 MCV 90 fl (84-94) 10/20/21 05:49 MCH 30 pg (28-32) 10/20/21 05:49 MCHC 33 % (32-34) 10/20/21 05:49 RDW 16.1 % (13.2-15.2) H 10/20/21 05:49 Plt Count 234 K/mm3 (140-440) 10/20/21 05:49 Lymph % (Auto) 26.2 % (13.4-35.0) 10/20/21 05:49 [place] % (Auto) 12.0 % (0.0-7.3) H 10/20/21 05:49 Eos % (Auto) 3.2 % (0.0-4.3) 10/20/21 05:49 Baso % (Auto) 0.4 % (0.0-1.8) 10/20/21 05:49 Lymph # (Auto) 1.3 K/mm3 (1.2-5.4) 10/20/21 05:49 [place] # (Auto) 0.6 K/mm3 (0.0-0.8) 10/20/21 05:49 Eos # (Auto) 0.2 K/mm3 (0.0-0.4) 10/20/21 05:49 Baso # (Auto) 0.0 K/mm3 (0.0-0.1) 10/20/21 05:49 Seg Neutrophils % 58.2 % (40.0-70.0) 10/20/21 05:49 Seg Neutrophils # 3.0 K/mm3 (1.8-7.7) 10/20/21 05:49 ESR 17 mm/Hr (0-20) 10/20/21 07:49 PT 13.2 Sec. (12.2-14.9) 10/21/21 10:14 INR 0.91 (0.87-1.13) 10/21/21 10:14 APTT 28.9 Sec. (24.2-36.6) 10/21/21 10:14 Sodium 139 mmol/L (137-145) 10/24/21 08:25 Potassium 3.8 mmol/L (3.6-5.0) 10/24/21 08:25 Chloride 106.4 mmol/L (98-107) 10/24/21 08:25 Carbon Dioxide 22 mmol/L (22-30) 10/24/21 08:25 Anion Gap 14 mmol/L 10/24/21 08:25 BUN 7 mg/dL (9-20) L 10/24/21 08:25 Creatinine 0.8 mg/dL (0.8-1.3) 10/24/21 08:25 Estimated GFR > 60 ml/min 10/24/21 08:25 BUN/Creatinine Ratio 9 % 10/24/21 08:25 Glucose 198 mg/dL (75-100) H 10/24/21 08:25 POC Glucose 174 mg/dL (70-105) H 10/19/21 22:22 Lactic Acid 0.90 mmol/L (0.7-2.0) 10/22/21 09:11 Calcium 8.7 mg/dL (8.4-10.2) 10/24/21 08:25 Total Bilirubin 0.30 mg/dL (0.1-1.2) 10/24/21 08:25 Direct Bilirubin < 0.2 mg/dL (0-0.2) 10/24/21 08:25 Indirect Bilirubin 0.1 mg/dL 10/24/21 08:25 AST 28 units/L (5-40) 10/24/21 08:25 ALT 54 units/L (7-56) 10/24/21 08:25 Alkaline Phosphatase 63 units/L (35-129) 10/24/21 08:25 Ammonia 25.0 umol/L (25-60) 10/18/21 19:09 Total Creatine Kinase 371 units/L (55-170) H 10/18/21 19:09 Troponin T < 0.010 ng/mL (0.00-0.029) 10/18/21 19:09 C-Reactive Protein 0.40 mg/dL (0.00-1.30) 10/20/21 05:49 Total Protein 7.2 g/dL (6.3-8.2) 10/24/21 08:25 Albumin 3.5 g/dL (3.9-5) L 10/24/21 08:25 Albumin/Globulin Ratio 0.9 % 10/24/21 08:25 Procalcitonin 0.09 ng/mL (<0.15) 10/20/21 05:49 Urine Color Yellow (Yellow) 10/18/21 22:08 Urine Turbidity Clear (Clear) 10/18/21 22:08 Urine pH 6.0 (5.0-7.0) 10/18/21 22:08 Ur Specific [place] 1.019 (1.003-1.030) 10/18/21 22:08 Urine Protein <15 mg/dl mg/dL (Negative) 10/18/21 22:08 Urine Glucose (UA) 150 mg/dL (Negative) 10/18/21 22:08 Urine Ketones Neg mg/dL (Negative) 10/18/21 22:08 Urine Blood Neg (Negative) 10/18/21 22:08 Urine Nitrite Neg (Negative) 10/18/21 22:08 Urine Bilirubin Neg (Negative) 10/18/21 22:08 Urine Urobilinogen 4.0 mg/dL (<2.0) 10/18/21 22:08 Ur Leukocyte Esterase Neg (Negative) 10/18/21 22:08 Urine WBC (Auto) 2.0 /HPF (0.0-6.0) 10/18/21 22:08 Urine RBC (Auto) 1.0 /HPF (0.0-6.0) 10/18/21 22:08 U Epithel Cells (Auto) < 1.0 /HPF (0-13.0) 10/18/21 22:08 Urine Mucus Few /HPF 10/18/21 22:08 Urine Opiates Screen Presumptive negative 10/20/21 04:30 Urine Methadone Screen Presumptive negative 10/20/21 04:30 Ur Barbiturates Screen Presumptive negative 10/20/21 04:30 Ur Phencyclidine Scrn Presumptive negative 10/20/21 04:30 Ur Amphetamines Screen Presumptive negative 10/20/21 04:30 U Benzodiazepines Scrn Presumptive negative 10/20/21 04:30 Urine Cocaine Screen Presumptive negative 10/20/21 04:30 U Marijuana (THC) Screen Presumptive negative 10/20/21 04:30 Drugs of Abuse Note Disclamer 10/20/21 04:30 Plasma/Serum Alcohol < 0.01 % (0-0.07) 10/18/21 19:09 SONYA Screen Negative (Negative) 10/20/21 Unknown Coronavirus (PCR) Negative (Negative) 10/19/21 09:10 Hep Bs Antigen Non-reactive (Negative) 10/19/21 00:14 Hep B Core IgM Ab Non-reactive (NonReactive) 10/19/21 00:14 Hepatitis C Antibody Non-reactive (NonReactive) 10/19/21 00:14 Microbiology: Microbiology 10/18/21 19:00 Peripheral/Venous Blood Culture - Final NO GROWTH AFTER 5 DAYS 10/18/21 19:00 Peripheral/Venous Blood Culture - Final NO GROWTH AFTER 5 DAYS Diaz/IV: Voiding Method Toilet Active Medications - Current Medications Current Medications: Generic Name Dose Route Start Last Admin Trade Name Freq PRN Reason Stop Dose Admin Acetaminophen 650 mg 10/18/21 23:41 Acetaminophen 325 Mg Tab PO Q4H PRN Pain MILD(1-3)/Fever >100.5/JENKINS Amlodipine Besylate 10 mg 10/23/21 10:00 10/24/21 09:39 Amlodipine 10 Mg Tab PO 10 mg DAILY BOB Administration Ceftriaxone Sodium 2 gm in 100 mls @ 200 mls/hr 10/19/21 18:00 10/24/21 05:44 Rocephin/Ns 2 Gm/100 Ml IV 200 mls/hr Q12H BOB Administration Protocol Ampicillin Sodium 2 gm in 100 mls @ 100 mls/hr 10/19/21 20:00 10/24/21 09:38 Ampicillin/Ns 2 Gm/100 Ml IV 100 mls/hr Q6H BOB Administration Protocol Acyclovir 800 mg/ Sodium 116 mls @ 100 mls/hr 10/20/21 14:00 10/24/21 05:45 Chloride IV 100 mls/hr Q8HR BOB Administration Protocol Dextrose/Sodium Chloride 1,000 mls @ 75 mls/hr 10/21/21 05:00 10/23/21 15:43 D5ns IV 75 mls/hr DIRECT BOB Administration Levetiracetam 1,000 mg 10/23/21 22:00 10/24/21 09:39 Levetiracetam 500 Mg Tab PO 1,000 mg BID BOB Administration Lorazepam 2 mg 10/20/21 11:00 10/21/21 15:51 Lorazepam 2 Mg/Ml Vial IV 2 mg Q4H PRN Administration Agitation Losartan Potassium 50 mg 10/23/21 10:30 10/24/21 09:39 Losartan 50 Mg Tab PO 50 mg QDAY BOB Administration Magnesium Hydroxide 30 ml 10/18/21 23:41 Magnesium Hydroxide (Mom) Oral Liqd Udc PO Q4H PRN Constipation Ondansetron HCl 4 mg 10/18/21 23:41 Ondansetron 4 Mg/2 Ml Inj IV Q8H PRN Nausea And Vomiting Sodium Chloride 10 ml 10/19/21 10:00 10/24/21 09:39 Sodium Chloride 0.9% 10 Ml Flush Syringe IV 10 ml BID BOB Administration Sodium Chloride 10 ml 10/18/21 23:41 Sodium Chloride 0.9% 10 Ml Flush Syringe IV PRN PRN LINE FLUSH Nutrition/Malnutrition Assess - Dietary Evaluation Nutrition/Malnutrition Findings: Nutrition Notes Start: 10/19/21 11:18 Freq: Status: Active Protocol: Document 10/23/21 15:38 MIRIAM (Rec: 10/23/21 15:54 MIRIAM [id number]) Nutrition Notes Initial or Follow up Brief Note Current Diagnosis Sepsis,Hypertension Other Pertinent Diagnosis Toxic Metabolic Encephalopathy , Hypoxia. Current Diet Mechanical Soft (since D 10/21 ). Height 5 ft 8 in Weight 94.5 kg [place] Body Weight (kg) 70.00 BMI 31.6 Weight change and time frame Discrepancy of 18.898 Kg body weight loss in 5 days reported . Weight Status Obese Subjective/Other Information RD consult for routine F/U on Dietary Advancement. Pt's PO intake has been Fair ( 50-75%), according to ADL notes. I was not able to found any AUDITOR/QUALITY evaluation or recommendatioon for Mechanical Soft Diet, but seems like it helped Pt to better PO intakes . Pt on Room Air, O2 saturation @ 98%, according to Physical Assessment History notes. Pt was scheduled for Fluoro- Guided Lumbar Punctur procedure on 10/21, results pending. Percent of energy/protein needs met: Prescribed Mechanical Soft Diet provides for energy/ protein needs (2,048 Kcal/97 g ) during LOS. Current % PO Fair (50-74%) #1 Nutrition Diagnosis Predicted suboptimal energy intake Comments: Pt's PO intake has been Fair ( 50-75%), according to ADL notes. Diagnosis Progress(for reassessment Resolved documentation) Nutrition Intervention Follow-Up By: 10/30/21 Additional Comments Continue monitoring food tolerance, %PO intake of meals , and BM.
[2021-10-24] MEDS: ACETAMINOPHEN 325 MG TAB PO PRN (14:55)
[2021-10-24] MEDS: D5W/0.9% NACL 1,000 ML IV SCH (16:24)
--- NOTE | 2021-10-24 18:01 | Progress Note ---
Assessment and Plan Cultures: Blood culture no growth so far A/P: 55-year-old man past medical history hypertension now with: #Acute sepsis: Present with fevers and tachycardia. Possibly secondary to meningitis. Mild is difficult to tell without CSF analysis, given there are no WBCs on CSF culture I doubt an acute bacterial meningitis. We will start ro lling back antibiotics. #Altered mental status: Possible secondary meningitis. Await LP results as above. Recs: -Continue ceftriaxone to 24 hours and acyclovir for now -Otherwise stop antibiotics Thank you for the consult, we will continue to follow. Mikaela Romero MD [facility] ([facility]) O: [phone] F: [phone] Subjective Date of service: 10/24/21 Interval history: Afebrile, no acute change. No results from CSF. Cultures are remain negative. CSF cultures without WBC. Objective - Exam Narrative Exam: Physical Exam: Constitutional: Alert, confused Head, Ears, Nose: Normocephalic, atraumatic. External ears, nose normal Eyes: Conjunctivae/corneas clear. No icterus. No ptosis. Neck: Supple, no meningeal signs Oral: dentition fair, no thrush Cardiovascular: S1, S2 normal. Respiratory: Good air entry, clear to auscultation bilaterally GI: Soft, non-tender; bowel sounds normal. No peritoneal signs. Musculoskeletal: No pedal edema, no cyanosis. Skin: No rash or abscess Hem/Lymphatic: No palpable cervical or supraclavicular nodes. No lymphangitis Psych: Confused Neurological: Awake, confused - Constitutional Vitals: Vital Signs Temp Pulse Resp BP Pulse Ox 98.4 F 86 18 141/100 97 10/24/21 17:00 10/24/21 17:00 10/24/21 17:00 10/24/21 17:00 10/24/21 17:00 Temperature -Last 24 Hours Temperature 98.4 F Temperature 98.6 F Temperature 98.6 F Temperature 98.3 F Temperature 98.4 F - Labs CBC & Chem 7: 10/20/21 05:49 10/24/21 08:25 Labs: Abnormal lab results 10/24/21 10/24/21 Range/Units 08:25 08:25 BUN 7 L (9-20) mg/dL Glucose 198 H (75-100) mg/dL Albumin 3.5 L (3.9-5) g/dL
--- NOTE | 2021-10-24 22:27 | Progress Note ---
Hospitalist Physical - Constitutional Vitals: Temp Pulse Resp BP Pulse Ox 98.4 F 86 18 141/100 97 10/24/21 17:00 10/24/21 17:00 10/24/21 17:00 10/24/21 17:00 10/24/21 17:00 General appearance: Present: no acute distress, well-nourished HEART Score - HEART Score Troponin: Troponin T < 0.010 ng/mL (0.00-0.029) 10/18/21 19:09 Results - Labs CBC & Chem 7: 10/20/21 05:49 10/24/21 08:25 Labs: Laboratory Last Values WBC 5.1 K/mm3 (4.5-11.0) 10/20/21 05:49 RBC 4.88 M/mm3 (3.65-5.03) 10/20/21 05:49 Hgb 14.6 gm/dl (11.8-15.2) 10/20/21 05:49 Hct 43.7 % (35.5-45.6) 10/20/21 05:49 MCV 90 fl (84-94) 10/20/21 05:49 MCH 30 pg (28-32) 10/20/21 05:49 MCHC 33 % (32-34) 10/20/21 05:49 RDW 16.1 % (13.2-15.2) H 10/20/21 05:49 Plt Count 234 K/mm3 (140-440) 10/20/21 05:49 Lymph % (Auto) 26.2 % (13.4-35.0) 10/20/21 05:49 [place] % (Auto) 12.0 % (0.0-7.3) H 10/20/21 05:49 Eos % (Auto) 3.2 % (0.0-4.3) 10/20/21 05:49 Baso % (Auto) 0.4 % (0.0-1.8) 10/20/21 05:49 Lymph # (Auto) 1.3 K/mm3 (1.2-5.4) 10/20/21 05:49 [place] # (Auto) 0.6 K/mm3 (0.0-0.8) 10/20/21 05:49 Eos # (Auto) 0.2 K/mm3 (0.0-0.4) 10/20/21 05:49 Baso # (Auto) 0.0 K/mm3 (0.0-0.1) 10/20/21 05:49 Seg Neutrophils % 58.2 % (40.0-70.0) 10/20/21 05:49 Seg Neutrophils # 3.0 K/mm3 (1.8-7.7) 10/20/21 05:49 ESR 17 mm/Hr (0-20) 10/20/21 07:49 PT 13.2 Sec. (12.2-14.9) 10/21/21 10:14 INR 0.91 (0.87-1.13) 10/21/21 10:14 APTT 28.9 Sec. (24.2-36.6) 10/21/21 10:14 Sodium 139 mmol/L (137-145) 10/24/21 08:25 Potassium 3.8 mmol/L (3.6-5.0) 10/24/21 08:25 Chloride 106.4 mmol/L (98-107) 10/24/21 08:25 Carbon Dioxide 22 mmol/L (22-30) 10/24/21 08:25 Anion Gap 14 mmol/L 10/24/21 08:25 BUN 7 mg/dL (9-20) L 10/24/21 08:25 Creatinine 0.8 mg/dL (0.8-1.3) 10/24/21 08:25 Estimated GFR > 60 ml/min 10/24/21 08:25 BUN/Creatinine Ratio 9 % 10/24/21 08:25 Glucose 198 mg/dL (75-100) H 10/24/21 08:25 POC Glucose 280 mg/dL (70-105) H 10/24/21 21:09 Lactic Acid 0.90 mmol/L (0.7-2.0) 10/22/21 09:11 Calcium 8.7 mg/dL (8.4-10.2) 10/24/21 08:25 Total Bilirubin 0.30 mg/dL (0.1-1.2) 10/24/21 08:25 Direct Bilirubin < 0.2 mg/dL (0-0.2) 10/24/21 08:25 Indirect Bilirubin 0.1 mg/dL 10/24/21 08:25 AST 28 units/L (5-40) 10/24/21 08:25 ALT 54 units/L (7-56) 10/24/21 08:25 Alkaline Phosphatase 63 units/L (35-129) 10/24/21 08:25 Ammonia 25.0 umol/L (25-60) 10/18/21 19:09 Total Creatine Kinase 371 units/L (55-170) H 10/18/21 19:09 Troponin T < 0.010 ng/mL (0.00-0.029) 10/18/21 19:09 C-Reactive Protein 0.40 mg/dL (0.00-1.30) 10/20/21 05:49 Total Protein 7.2 g/dL (6.3-8.2) 10/24/21 08:25 Albumin 3.5 g/dL (3.9-5) L 10/24/21 08:25 Albumin/Globulin Ratio 0.9 % 10/24/21 08:25 Procalcitonin 0.09 ng/mL (<0.15) 10/20/21 05:49 Urine Color Yellow (Yellow) 10/18/21 22:08 Urine Turbidity Clear (Clear) 10/18/21 22:08 Urine pH 6.0 (5.0-7.0) 10/18/21 22:08 Ur Specific [place] 1.019 (1.003-1.030) 10/18/21 22:08 Urine Protein <15 mg/dl mg/dL (Negative) 10/18/21 22:08 Urine Glucose (UA) 150 mg/dL (Negative) 10/18/21 22:08 Urine Ketones Neg mg/dL (Negative) 10/18/21 22:08 Urine Blood Neg (Negative) 10/18/21 22:08 Urine Nitrite Neg (Negative) 10/18/21 22:08 Urine Bilirubin Neg (Negative) 10/18/21 22:08 Urine Urobilinogen 4.0 mg/dL (<2.0) 10/18/21 22:08 Ur Leukocyte Esterase Neg (Negative) 10/18/21 22:08 Urine WBC (Auto) 2.0 /HPF (0.0-6.0) 10/18/21 22:08 Urine RBC (Auto) 1.0 /HPF (0.0-6.0) 10/18/21 22:08 U Epithel Cells (Auto) < 1.0 /HPF (0-13.0) 10/18/21 22:08 Urine Mucus Few /HPF 10/18/21 22:08 Urine Opiates Screen Presumptive negative 10/20/21 04:30 Urine Methadone Screen Presumptive negative 10/20/21 04:30 Ur Barbiturates Screen Presumptive negative 10/20/21 04:30 Ur Phencyclidine Scrn Presumptive negative 10/20/21 04:30 Ur Amphetamines Screen Presumptive negative 10/20/21 04:30 U Benzodiazepines Scrn Presumptive negative 10/20/21 04:30 Urine Cocaine Screen Presumptive negative 10/20/21 04:30 U Marijuana (THC) Screen Presumptive negative 10/20/21 04:30 Drugs of Abuse Note Disclamer 10/20/21 04:30 Plasma/Serum Alcohol < 0.01 % (0-0.07) 10/18/21 19:09 SONYA Screen Negative (Negative) 10/20/21 Unknown Coronavirus (PCR) Negative (Negative) 10/19/21 09:10 Hep Bs Antigen Non-reactive (Negative) 10/19/21 00:14 Hep B Core IgM Ab Non-reactive (NonReactive) 10/19/21 00:14 Hepatitis C Antibody Non-reactive (NonReactive) 10/19/21 00:14 Microbiology: Microbiology 10/21/21 12:30 Cerebral Spinal Fluid CSF Culture - Final 10/18/21 19:00 Peripheral/Venous Blood Culture - Final NO GROWTH AFTER 5 DAYS 10/18/21 19:00 Peripheral/Venous Blood Culture - Final NO GROWTH AFTER 5 DAYS Diaz/IV: Voiding Method Toilet Active Medications - Current Medications Current Medications: Generic Name Dose Route Start Last Admin Trade Name Freq PRN Reason Stop Dose Admin Acetaminophen 650 mg 10/18/21 23:41 10/24/21 14:55 Acetaminophen 325 Mg Tab PO 650 mg Q4H PRN Administration Pain MILD(1-3)/Fever >100.5/JENKINS Amlodipine Besylate 10 mg 10/23/21 10:00 10/24/21 09:39 Amlodipine 10 Mg Tab PO 10 mg DAILY BOB Administration Ceftriaxone Sodium 2 gm in 100 mls @ 200 mls/hr 10/19/21 18:00 10/24/21 17:54 Rocephin/Ns 2 Gm/100 Ml IV 200 mls/hr Q12H BOB Administration Protocol Ampicillin Sodium 2 gm in 100 mls @ 100 mls/hr 10/19/21 20:00 10/24/21 21:39 Ampicillin/Ns 2 Gm/100 Ml IV 100 mls/hr Q6H BOB Administration Protocol Acyclovir 800 mg/ Sodium 116 mls @ 100 mls/hr 10/20/21 14:00 10/24/21 21:39 Chloride IV 100 mls/hr Q8HR BOB Administration Protocol Dextrose/Sodium Chloride 1,000 mls @ 75 mls/hr 10/21/21 05:00 10/24/21 16:24 D5ns IV 75 mls/hr DIRECT BOB Administration Levetiracetam 1,000 mg 10/23/21 22:00 10/24/21 21:39 Levetiracetam 500 Mg Tab PO 1,000 mg BID BOB Administration Lorazepam 2 mg 10/20/21 11:00 10/21/21 15:51 Lorazepam 2 Mg/Ml Vial IV 2 mg Q4H PRN Administration Agitation Losartan Potassium 50 mg 10/23/21 10:30 10/24/21 09:39 Losartan 50 Mg Tab PO 50 mg QDAY BOB Administration Magnesium Hydroxide 30 ml 10/18/21 23:41 Magnesium Hydroxide (Mom) Oral Liqd Udc PO Q4H PRN Constipation Ondansetron HCl 4 mg 10/18/21 23:41 Ondansetron 4 Mg/2 Ml Inj IV Q8H PRN Nausea And Vomiting Sodium Chloride 10 ml 10/19/21 10:00 10/24/21 21:58 Sodium Chloride 0.9% 10 Ml Flush Syringe IV 10 ml BID BOB Administration Sodium Chloride 10 ml 10/18/21 23:41 Sodium Chloride 0.9% 10 Ml Flush Syringe IV PRN PRN LINE FLUSH Nutrition/Malnutrition Assess - Dietary Evaluation Nutrition/Malnutrition Findings: Nutrition Notes Start: 10/19/21 1 1:18 Freq: Status: Active Protocol: Document 10/23/21 15:38 MIRIAM (Rec: 10/23/21 15:54 MIRIAM [id number]) Nutrition Notes Initial or Follow up Brief Note Current Diagnosis Sepsis,Hypertension Other Pertinent Diagnosis Toxic Metabolic Encephalopathy , Hypoxia. Current Diet Mechanical Soft (since D 10/21 ). Height 5 ft 8 in Weight 94.5 kg [place] Body Weight (kg) 70.00 BMI 31.6 Weight change and time frame Discrepancy of 18.898 Kg body weight loss in 5 days reported . Weight Status Obese Subjective/Other Information RD consult for routine F/U on Dietary Advancement. Pt's PO intake has been Fair ( 50-75%), according to ADL notes. I was not able to found any STILE RIPSAW OPERATOR evaluation or recommendatioon for Mechanical Soft Diet, but seems like it helped Pt to better PO intakes . Pt on Room Air, O2 saturation @ 98%, according to Physical Assessment History notes. Pt was scheduled for Fluoro- Guided Lumbar Punctur procedure on 10/21, results pending. Percent of energy/protein needs met: Prescribed Mechanical Soft Diet provides for energy/ protein needs (2,048 Kcal/97 g ) during LOS. Current % PO Fair (50-74%) #1 Nutrition Diagnosis Predicted suboptimal energy intake Comments: Pt's PO intake has been Fair ( 50-75%), according to ADL notes. Diagnosis Progress(for reassessment Resolved documentation) Nutrition Intervention Follow-Up By: 10/30/21 Additional Comments Continue monitoring food tolerance, %PO intake of meals , and BM.
[2021-10-25] MEDS ORDERED: hydrALAZINE 10 MG TAB PO PRN (05:21)
[2021-10-25] MEDS: ACYCLOVIR 800 MG in SODIUM CHLORIDE 0.9% 100 ML IV SCH (05:23)
[2021-10-25] MEDS ORDERED: hydrALAZINE 20 MG/1 ML INJ IV PRN (05:33)
[2021-10-25 05:38] VITALS: BP 137/92
--- NOTE | 2021-10-25 08:44 | Progress Note ---
Assessment and Plan Assessment and plan: 55-year-old male who presents emergency room with altered mental status and fever. Patient has no significant past medical history. Patient visited somebody in [place] during the weekend and returned after 2 to 3 days. He was experiencing nausea vomiting and diarrhea since Thursday but did not seek medical attention. He was noted to have a fever, drowsiness and confusion and brought to ED. Patient unable to provide any history since confused. Patient brother later in the ER course presented at bedside and reported that the patient had abdominal pain, diarrhea, nausea, vomiting for 1 week. The brother brought him to the ER because he was confused and febrile. Initial evaluation, patient found to be hypoxic and the patient was placed on supplemental oxygen. Patient remained on supplemental oxygen entire time in the ER. Patient given fluids and the patient's heart rate improved. Due to patient's altered mental status, a head CT was done. Patient's head CT was negative for acute findings. For the fever, the patient had a chest x-ray which was negative for acute findings. Patient had an abdominal CT for the abdominal pain. Patient done with C was negative for acute findings. Patient had a chest CT due to the tachycardia and hypoxia. Patient's chest CT was negative for acute findings. CTA showed no PE. Repeat CT head showed no acute process. s/p LP 10/21/21 sent for CSF analysis, continue empiric antibiotics for possible meningitis per ID Follow-up pending CSF fluid analysis test reports --Toxic metabolic encephalopathy [altered mental status with fever] Rule out meningitis, lumbar puncture done and CSF fluid sent for analysis Patient symptoms slightly improved, patient is on empiric antibiotics for meningitis ampicillin, Rocephin, acyclovir Continue pending CSF reports, continue supportive care ID following Urine drug screen ordered but not yet performed as patient was unable to make urine. Blood alcohol level negative. CT head, CTA chest and CT abdomen/pelvis unremarkable. Blood cultures pending. Neurology recommended MRI brain EEG: pending during weekend Ordered repeat CT head and showed no acute change, According to the son, patient does not use alcohol, tobacco or illicit drugs. No significant past medical history provided. --Acute sepsis; Criteria;, fever, tachycardia, hypoxia, possible meningitis Liver failure, continue empiric antibiotics Status post lumbar puncture, follow fluid analysis ID following --Febrile illness; CT chest and CT abdomen negative for pneumonia or inflammatory changes. Suggestive of viral syndrome. COVID-19 test negative. Will await culture results. --Hypoxia noted in ED Currently patient has no respiratory distress, lungs clear. Saturating well on room air, home O2 evaluation prior to discharge --HTN (hypertension) Currently stable --Elevated liver enzymes Etiology is unclear, likely part of acute viral syndrome Will check hepatitis profile. --DVT prophylaxis Change heparin to SCDs in anticipation of LP --Full code status Patient is full code. Closely monitor the patient and adjust management as needed Plan of care reviewed with patient, family at the bedside, patient's nurse 10/24/2021; patient feels slightly better anxious to go edie. Persistent sepsis status post lumbar puncture, fluid analysis still pending Patient is on acyclovir ampicillin and Rocephin CSF cultures negative Hospitalist Physical - Constitutional Vitals: Temp Pulse Resp BP Pulse Ox 97.3 F L 77 18 137/92 100 10/25/21 04:35 10/25/21 05:37 10/25/21 04:35 10/25/21 05:37 10/25/21 06:55 General appearance: Present: no acute distress, well-nourished HEART Score - HEART Score Troponin: Troponin T < 0.010 ng/mL (0.00-0.029) 10/18/21 19:09 Results - Labs CBC & Chem 7: 10/20/21 05:49 10/24/21 08:25 Labs: Laboratory Last Values WBC 5.1 K/mm3 (4.5-11.0) 10/20/21 05:49 RBC 4.88 M/mm3 (3.65-5.03) 10/20/21 05:49 Hgb 14.6 gm/dl (11.8-15.2) 10/20/21 05:49 Hct 43.7 % (35.5-45.6) 10/20/21 05:49 MCV 90 fl (84-94) 10/20/21 05:49 MCH 30 pg (28-32) 10/20/21 05:49 MCHC 33 % (32-34) 10/20/21 05:49 RDW 16.1 % (13.2-15.2) H 10/20/21 05:49 Plt Count 234 K/mm3 (140-440) 10/20/21 05:49 Lymph % (Auto) 26.2 % (13.4-35.0) 10/20/21 05:49 [place] % (Auto) 12.0 % (0.0-7.3) H 10/20/21 05:49 Eos % (Auto) 3.2 % (0.0-4.3) 10/20/21 05:49 Baso % (Auto) 0.4 % (0.0-1.8) 10/20/21 05:49 Lymph # (Auto) 1.3 K/mm3 (1.2-5.4) 10/20/21 05:49 [place] # (Auto) 0.6 K/mm3 (0.0-0.8) 10/20/21 05:49 Eos # (Auto) 0.2 K/mm3 (0.0-0.4) 10/20/21 05:49 Baso # (Auto) 0.0 K/mm3 (0.0-0.1) 10/20/21 05:49 Seg Neutrophils % 58.2 % (40.0-70.0) 10/20/21 05:49 Seg Neutrophils # 3.0 K/mm3 (1.8-7.7) 10/20/21 05:49 ESR 17 mm/Hr (0-20) 10/20/21 07:49 PT 13.2 Sec. (12.2-14.9) 10/21/21 10:14 INR 0.91 (0.87-1.13) 10/21/21 10:14 APTT 28.9 Sec. (24.2-36.6) 10/21/21 10:14 Sodium 139 mmol/L (137-145) 10/24/21 08:25 Potassium 3.8 mmol/L (3.6-5.0) 10/24/21 08:25 Chloride 106.4 mmol/L (98-107) 10/24/21 08:25 Carbon Dioxide 22 mmol/L (22-30) 10/24/21 08:25 Anion Gap 14 mmol/L 10/24/21 08:25 BUN 7 mg/dL (9-20) L 10/24/21 08:25 Creatinine 0.8 mg/dL (0.8-1.3) 10/24/21 08:25 Estimated GFR > 60 ml/min 10/24/21 08:25 BUN/Creatinine Ratio 9 % 10/24/21 08:25 Glucose 198 mg/dL (75-100) H 10/24/21 08:25 POC Glucose 280 mg/dL (70-105) H 10/24/21 21:09 Lactic Acid 0.90 mmol/L (0.7-2.0) 10/22/21 09:11 Calcium 8.7 mg/dL (8.4-10.2) 10/24/21 08:25 Total Bilirubin 0.30 mg/dL (0.1-1.2) 10/24/21 08:25 Direct Bilirubin < 0.2 mg/dL (0-0.2) 10/24/21 08:25 Indirect Bilirubin 0.1 mg/dL 10/24/21 08:25 AST 28 units/L (5-40) 10/24/21 08:25 ALT 54 units/L (7-56) 10/24/21 08:25 Alkaline Phosphatase 63 units/L (35-129) 10/24/21 08:25 Ammonia 25.0 umol/L (25-60) 10/18/21 19:09 Total Creatine Kinase 371 units/L (55-170) H 10/18/21 19:09 Troponin T < 0.010 ng/mL (0.00-0.029) 10/18/21 19:09 C-Reactive Protein 0.40 mg/dL (0.00-1.30) 10/20/21 05:49 Total Protein 7.2 g/dL (6.3-8.2) 10/24/21 08:25 Albumin 3.5 g/dL (3.9-5) L 10/24/21 08:25 Albumin/Globulin Ratio 0.9 % 10/24/21 08:25 Procalcitonin 0.09 ng/mL (<0.15) 10/20/21 05:49 Urine Color Yellow (Yellow) 10/18/21 22:08 Urine Turbidity Clear (Clear) 10/18/21 22:08 Urine pH 6.0 (5.0-7.0) 10/18/21 22:08 Ur Specific [place] 1.019 (1.003-1.030) 10/18/21 22:08 Urine Protein <15 mg/dl mg/dL (Negative) 10/18/21 22:08 Urine Glucose (UA) 150 mg/dL (Negative) 10/18/21 22:08 Urine Ketones Neg mg/dL (Negative) 10/18/21 22:08 Urine Blood Neg (Negative) 10/18/21 22:08 Urine Nitrite Neg (Negative) 10/18/21 22:08 Urine Bilirubin Neg (Negative) 10/18/21 22:08 Urine Urobilinogen 4.0 mg/dL (<2.0) 10/18/21 22:08 Ur Leukocyte Esterase Neg (Negative) 10/18/21 22:08 Urine WBC (Auto) 2.0 /HPF (0.0-6.0) 10/18/21 22:08 Urine RBC (Auto) 1.0 /HPF (0.0-6.0) 10/18/21 22:08 U Epithel Cells (Auto) < 1.0 /HPF (0-13.0) 10/18/21 22:08 Urine Mucus Few /HPF 10/18/21 22:08 Urine Opiates Screen Presumptive negative 10/20/21 04:30 Urine Methadone Screen Presumptive negative 10/20/21 04:30 Ur Barbiturates Screen Presumptive negative 10/20/21 04:30 Ur Phencyclidine Scrn Presumptive negative 10/20/21 04:30 Ur Amphetamines Screen Presumptive negative 10/20/21 04:30 U Benzodiazepines Scrn Presumptive negative 10/20/21 04:30 Urine Cocaine Screen Presumptive negative 10/20/21 04:30 U Marijuana (THC) Screen Presumptive negative 10/20/21 04:30 Drugs of Abuse Note Disclamer 10/20/21 04:30 Plasma/Serum Alcohol < 0.01 % (0-0.07) 10/18/21 19:09 SONYA Screen Negative (Negative) 10/20/21 Unknown Coronavirus (PCR) Negative (Negative) 10/19/21 09:10 Hep Bs Antigen Non-reactive (Negative) 10/19/21 00:14 Hep B Core IgM Ab Non-reactive (NonReactive) 10/19/21 00:14 Hepatitis C Antibody Non-reactive (NonReactive) 10/19/21 00:14 Microbiology: Microbiology 10/21/21 12:30 Cerebral Spinal Fluid CSF Culture - Final Diaz/IV: Voiding Method Toilet Active Medications - Current Medications Current Medications: Generic Name Dose Route Start Last Admin Trade Name Freq PRN Reason Stop Dose Admin Acetaminophen 650 mg 10/18/21 23:41 10/24/21 14:55 Acetaminophen 325 Mg Tab PO 650 mg Q4H PRN Administration Pain MILD(1-3)/Fever >100.5/JENKINS Amlodipine Besylate 10 mg 10/23/21 10:00 10/24/21 09:39 Amlodipine 10 Mg Tab PO 10 mg DAILY BOB Administration Hydralazine HCl 10 mg 10/25/21 05:33 10/25/21 05:37 Hydralazine 20 Mg/1 Ml Inj IV 10 mg Q6HR PRN Administration high blood pressure Acyclovir 800 mg/ Sodium 116 mls @ 100 mls/hr 10/20/21 14:00 10/25/21 07:47 Chloride IV Infused Q8HR BOB Infusion Protocol Dextrose/Sodium Chloride 1,000 mls @ 75 mls/hr 10/21/21 05:00 10/25/21 07:49 D5ns IV Infused DIRECT BOB Infusion Ceftriaxone Sodium 2 gm in 100 mls @ 200 mls/hr 10/25/21 18:00 Rocephin/Ns 2 Gm/100 Ml IV Q24H [facility] Protocol Levetiracetam 1,000 mg 10/23/21 22:00 10/24/21 21:39 Levetiracetam 500 Mg Tab PO 1,000 mg BID BOB Administration Lorazepam 2 mg 10/20/21 11:00 10/21/21 15:51 Lorazepam 2 Mg/Ml Vial IV 2 mg Q4H PRN Administration Agitation Losartan Potassium 50 mg 10/23/21 10:30 10/24/21 09:39 Losartan 50 Mg Tab PO 50 mg QDAY BOB Administration Magnesium Hydroxide 30 ml 10/18/21 23:41 Magnesium Hydroxide (Mom) Oral Liqd Udc PO Q4H PRN Constipation Ondansetron HCl 4 mg 10/18/21 23:41 Ondansetron 4 Mg/2 Ml Inj IV Q8H PRN Nausea And Vomiting Sodium Chloride 10 ml 10/19/21 10:00 10/24/21 21:58 Sodium Chloride 0.9% 10 Ml Flush Syringe IV 10 ml BID BOB Administration Sodium Chloride 10 ml 10/18/21 23:41 Sodium Chloride 0.9% 10 Ml Flush Syringe IV PRN PRN LINE FLUSH Nutrition/Malnutrition Assess - Dietary Evaluation Nutrition/Malnutrition Findings: Nutrition Notes Start: 10/19/21 11:18 Freq: Status: Active Protocol: Document 10/23/21 15:38 MIRIAM (Rec: 10/23/21 15:54 MIRIAM [id number]) Nutrition Notes Initial or Follow up Brief Note Current Diagnosis Sepsis,Hypertension Other Pertinent Diagnosis Toxic Metabolic Encephalopathy , Hypoxia. Current Diet Mechanical Soft (since D 10/21 ). Height 5 ft 8 in Weight 94.5 kg [place] Body Weight (kg) 70.00 BMI 31.6 Weight change and time frame Discrepancy of 18.898 Kg body weight loss in 5 days reported . Weight Status Obese Subjective/Other Information RD consult for routine F/U on Dietary Advancement. Pt's PO intake has been Fair ( 50-75%), according to ADL notes. I was not able to found any GENETIC SCIENTIST evaluation or recommendatioon for Mechanical Soft Diet, but seems like it helped Pt to better PO intakes . Pt on Room Air, O2 saturation @ 98%, according to Physical Assessment History notes. Pt was scheduled for Fluoro- Guided Lumbar Punctur procedure on 10/21, results pending. Percent of energy/protein needs met: Prescribed Mechanical Soft Diet provides for energy/ protein needs (2,048 Kcal/97 g ) during LOS. Current % PO Fair (50-74%) #1 Nutrition Diagnosis Predicted suboptimal energy intake Comments: Pt's PO intake has been Fair ( 50-75%), according to ADL notes. Diagnosis Progress(for reassessment Resolved documentation) Nutrition Intervention Follow-Up By: 10/30/21 Additional Comments Continue monitoring food tolerance, %PO intake of meals , and BM.
[2021-10-25] MEDS: LOSARTAN 50 MG TAB PO SCH (10:25)
[2021-10-25] MEDS: ACETAMINOPHEN 325 MG TAB PO PRN (10:25)
[2021-10-25] MEDS: levETIRAcetam 500 MG TAB PO SCH (10:25)
[2021-10-25] MEDS: amLODIPine 10 MG TAB PO SCH (10:25)
--- NOTE | 2021-10-25 12:26 | Discharge Summary ---
Providers - Providers Date of Admission: 10/18/21 23:42 Date of discharge: 10/25/21 Attending physician: BECCA ORTEGA 10/18/21 23:53 Consult to Physician [CONS] Routine Comment: Consulting Provider: MELVIN SANDOVAL Physician Instructions: Reason For Exam: Transaminitis 10/19/21 10:27 Consult to Physician [CONS] Urgent Comment: Consulting Provider: KEENAN DUNHAM Physician Instructions: Reason For Exam: Fever with altered mental status 10/19/21 17:26 Consult to Physician [CONS] Routine Comment: Consulting Provider: CINDY KING Physician Instructions: Reason For Exam: AMS, fever, possible meningitis 10/22/21 10:41 Physical Therapy Evaluation and Treat [CONS] Routine Comment: Reason For Exam: generalzed weakness 10/22/21 15:08 Occupational Therapy Evaluate and Treat [CONS] Routine Comment: Reason For Exam: General debility/evaluate and treat/discharge need Primary care physician: DENAE DUNN Hospitalization Condition: Stable Pertinent studies: CT head without contrast no acute focal parenchymal lesion CT abdomen and pelvis no acute findings within the abdomen or pelvis, round foc us of enhancement left hepatic lobe with additional small foci adjacent to the gallbladder fossa differential considerations as detailed[advised to see GI as outpatient for further evaluation and management] CTA chest; no CT evidence of pulmonary embolism no other acute findings Repeat head CT 10/20/2021; limited CT scan of the brain best possible images were obtained no hemorrhage no mass or midline shift MRI brain; no acute intracranial abnormality noted Procedures: Fluoroscopic guided lumbar puncture Hospital course: 55-year-old male presenting to the emergency room today complaining of altered mental status and fever. Patient was said to be brought to the emergency room by his brother. Patient unable to provide adequate history and most of the information was gotten from the ER staff. Patient however states he just feels cold. He denies any chest pain, no nausea vomiting and no abdominal pain. No hematuria or dysuria. Work-up in the emergency room today, chest x-ray shows no acute findings. CT of the head shows no acute findings. CT of the abdomen and pelvis shows no acute findings Discharge diagnosis; --Toxic metabolic encephalopathy [altered mental status with fever] Rule out meningitis, lumbar puncture done and CSF fluid sent for analysis Patient symptoms slightly improved, patient is on empiric antibiotics for meningitis ampicillin, Rocephin, acyclovir Continue pending CSF reports, continue supportive care ID following Urine drug screen ordered but not yet performed as patient was unable to make urine. Blood alcohol level negative. CT head, CTA chest and CT abdomen/pelvis unremarkable. Blood cultures pending. Neurology recommended MRI brain EEG: pending during weekend Ordered repeat CT head and showed no acute change, According to the son, patient does not use alcohol, tobacco or illicit drugs. No significant past medical history provided. --Acute sepsis; Criteria;, fever, tachycardia, hypoxia, possible meningitis Liver failure, continue empiric antibiotics Status post lumbar puncture, follow fluid analysis ID following --Febrile illness; CT chest and CT abdomen negative for pneumonia or inflammatory changes. Suggestive of viral syndrome. COVID-19 test negative. Will await culture results. --Hypoxia noted in ED Currently patient has no respiratory distress, lungs clear. Saturating well on room air, home O2 evaluation prior to discharge --HTN (hypertension) Currently stable --Elevated liver enzymes Etiology is unclear, likely part of acute viral syndrome Will check hepatitis profile. Cleared by all the consultants for discharge Discussed with ID Dr. Nick Hopson, advised to discontinue Rocephin and acyclovir No antibiotics needed at discharge, follow per schedule Disposition: HOME / SELF CARE / HOMELESS Final Discharge Diagnosis (Prints w/discharge instructions): Toxic metabolic encephalopathy improved. acute sepsis improved. Febrile illness present on admission/resolved. Acute hypoxia on admission, resolved. Hypertension. Elevated liver enzymes/resolved. Mild malnutrition. Type 2 diabetes mellitus Time spent for discharge: 40 min Core Measure Documentation - Palliative Care Palliative Care/ Comfort Measures: Not Applicable - Core Measures Any of the following diagnoses?: none Exam - Constitutional Vitals: Temp Pulse Resp BP Pulse Ox 97.3 F L 77 18 137/92 100 10/25/21 04:35 10/25/21 05:37 10/25/21 04:35 10/25/21 05:37 10/25/21 06:55 General appearance: Present: no acute distress, well-nourished - EENT Eyes: Present: PERRL, EOM intact - Neck Neck: Present: supple, normal ROM - Respiratory Respiratory effort: normal Respiratory: bilateral: diminished, negative: rales, rhonchi, wheezing - Cardiovascular Rhythm: regular Heart Sounds: Present: S1 & S2 - Extremities Extremities: no ischemia, No edema - Abdominal General gastrointestinal: Present: soft, non-tender, non-distended, normal bowel sounds - Integumentary Integumentary: Present: clear, warm - Musculoskeletal Musculoskeletal: strength equal bilaterally - Psychiatric Psychiatric: appropriate mood/affect, cooperative - Neurologic Neurologic: CNII-XII intact, moves all extremities Plan Activity: no restrictions, no driving until cleared by PCP, other (Seizure precautions) Diet: diabetic Additional Instructions: Seizure precautions. Do not drive until cleared by neurologist. If you have worsening symptoms contact MD or go to the nearest emergency room as needed. Advised to follow your primary care physician in 1 week. Follow infectious diseases specialist in 1 to 2 weeks. Advised to follow private neurologist Dr.Wang Andino in 1 week, outpatient EEG. At neurologist office Follow up with: DENAE DUNN MD [Primary Care Provider] - 7 Days CINDY KING MD [Staff Physician] - 10 Days CAMILA CASTILLO MD [Staff Physician] - 10 Days Prescriptions: levETIRAcetam [Keppra TAB] 1,000 mg PO BID #60 tab
--- NOTE | 2021-10-25 12:44 | Progress Note ---
Assessment and Plan Cultures: Blood culture no growth so far A/P: 55-year-old man past medical history hypertension now with: #Acute sepsis: Present with fevers and tachycardia. Possibly secondary to meningitis. Mild is difficult to tell without CSF analysis, given there are no WBCs on CSF culture I doubt an acute bacterial meningitis. We will start ro lling back antibiotics. #Altered mental status: Possible secondary meningitis. Await LP results as above. Recs: -Stopped all antibiotics, no evidence of bacterial meningitis -Okay for discharge from ID perspective Thank you for the consult, we will continue to follow. Mikaela Romero MD [facility] O: [phone] F: [phone] Subjective Date of service: 10/25/21 Interval history: Afebrile, normal white count. Sed rate is normal. Doing much better. Objective - Exam Narrative Exam: Physical Exam: Constitutional: Awake, alert Head, Ears, Nose: Normocephalic, atraumatic. External ears, nose normal Eyes: Conjunctivae/corneas clear. No icterus. No ptosis. Neck: Supple, no meningeal signs Oral: dentition fair, no thrush Cardiovascular: S1, S2 normal. Respiratory: Good air entry, clear to auscultation bilaterally GI: Soft, non-tender; bowel sounds normal. No peritoneal signs. Musculoskeletal: No pedal edema, no cyanosis. Skin: No rash or abscess Hem/Lymphatic: No palpable cervical or supraclavicular nodes. No lymphangitis Psych: Normal affect Neurological: Awake, no abnormality - Constitutional Vitals: Vital Signs Temp Pulse Resp BP Pulse Ox 97.3 F L 77 18 137/92 100 10/25/21 04:35 10/25/21 05:37 10/25/21 04:35 10/25/21 05:37 10/25/21 06:55 Temperature -Last 24 Hours Temperature 97.3 F Temperature 97.4 F Temperature 98.4 F - Labs CBC & Chem 7: 10/20/21 05:49 10/24/21 08:25 Labs: Abnormal lab results 10/24/21 Range/Units 21:09 POC Glucose 280 H (70-105) mg/dL
[2021-10-25] MEDS ORDERED: cefTRIAXone/NS 2 GM/100 ML 2 GM/100 ML BAG IV SCH (18:00)
--- NOTE | 2021-10-25 21:16 | Progress Note ---
Assessment and Plan 55 yo male with htn, admitted with acute encephalopathy with a concern for possible sepsis and a seizure event in the setting of a recent gi illness with mri/csf studies being unremarkable. 1. Seizure - unclear if patient was initially in status epilepticus or if postictal secondary to underlying infection; continue current AED regimen as outpatient and f/u with neurology in 4 weeks. EEG report is unavailable to me. Seizure precautions and seizure restrictions to remain in place. 2. Acute Metabolic Encephalopathy - concern is raised based on hx of fever and recent gi illness. 3. No further acute neurologic workup indicated at present. Neurology will signoff. Xavi Bae MD Neurology Subjective Date of service: 10/25/21 Principal diagnosis: Confusion Interval history: 55 yo male with htn, admitted with acute encephalopathy with a concern for possible seizure event in the setting of a recent gi illness with mri/csf studi es being unremarkable. Patient notes he is currently at his baseline and is ready to go home. Objective - Exam Narrative Exam: Gen: nad, well-nourished; Head: normocephalic; Eyes: no gaze deviation; no ptosis; ENT: normal vocalization; CVS: warm and well-perfused; Pulm: no respiratory distress; GI: appears non-distended; Ext: no cyanosis appreciated at distal extremities; Skin: no acute rash at distal extremities; Heme: no pathologic ecchymosis appreciated at distal extremities; Neuro: alert, oriented to name, age, month, year, surroundings, no dysarthria, no aphasia, 3/3 short-term memory recall; no attention deficit; CN 2 - PERRL, visual rodas grossly intact, CN 3, 4, 6 - EOMI, CN 5 - facial sensation symmetric to light touch, CN 7 - facial movement symmetric, CN 8 - hearing grossly intact, CN 9, 10 - uvula midline, CN 11 symmetric shoulder movement, CN 12 - tongue midline; Motor - at least 5-/5 at all exts; Sensory - light touch symmetric, Cerebellar - fnf /hts intact, Gait - deferred secondary to seizure precautions; - Vital Sign afebrile 139/88 92 14 98%RA - Laboratory Findings CBC and BMP: 10/20/21 05:49 10/24/21 08:25 Abnormal Lab Findings: Abnormal Labs 04/29/22 04/29/22 04/29/22 18:23 18:23 19:09 WBC 4.1 L RDW 16.6 H [place] % (Auto) 9.6 H Lymph # (Auto) 1.1 L BUN Glucose 208 H POC Glucose Direct Bilirubin 0.3 H AST 134 H ALT 94 H Total Creatine Kinase Albumin 10/18/21 10/19/21 10/19/21 19:09 04:36 04:36 WBC RDW 16.0 H [place] % (Auto) 8.6 H Lymph # (Auto) BUN 7 L Glucose 156 H POC Glucose Direct Bilirubin AST ALT Total Creatine Kinase 371 H Albumin 10/19/21 10/20/21 10/20/21 22:22 05:49 05:49 WBC RDW 16.1 H [place] % (Auto) 12.0 H Lymph # (Auto) BUN Glucose 162 H POC Glucose 174 H Direct Bilirubin AST 46 H ALT 87 H Total Creatine Kinase Albumin 3.8 L 10/24/21 10/24/21 10/24/21 08:25 08:25 21:09 WBC RDW [place] % (Auto) Lymph # (Auto) BUN 7 L Glucose 198 H POC Glucose 280 H Direct Bilirubin AST ALT Total Creatine Kinase Albumin 3.5 L
== END 2021-10-25 14:15 | disposition home or self-care (01) | DRG 871 ==
LOC: ED 17:25 → 3A 23:42
PROVIDERS: ADMIT Internal Medicine Geriatric Medicine; ATTEND Internal Medicine
PROC: 009U3ZX Drainage of Spinal Canal, Percutaneous Approach, Diagnostic (ICD-10-PCS; principal; 2021-10-21)
PROC: B01B1ZZ Fluoroscopy of Spinal Cord using Low Osmolar Contrast (ICD-10-PCS; 2021-10-21)
DX: A41.9 Sepsis, unspecified organism (principal); G03.9 Meningitis, unspecified; J96.01 Acute respiratory failure with hypoxia; G92.8 Other toxic encephalopathy; E44.1 Mild protein-calorie malnutrition; Z86.79 Personal history of other diseases of the circulatory system; Z20.822 Contact with and (suspected) exposure to COVID-19; I10 Essential (primary) hypertension
CPT/HCPCS: 36415; 62270; 62328; 70450; 70553; 71045; 71275; 74177; 80048; 80053; 80074; 80076; 80307; 80320; 81001; 82140; 82550; 82962; 84145; 84484; 85025; 85610; 85652; 85730; 86038; 86140; 87040; 87116; 93005; 96374; 99285; G0378; J3490; J7060; A9575; G0480; J0133; J0290; J0360; J0696; J1953; J2060; J2270; J3411; J7030; J7042; Q9967; U0003